=== PATIENT | male | born 1960 | race Caucasian/White ===

== ENCOUNTER 2017-08-16 19:56 | Emergency (ER) | payer MEDICARE ==
[2017-08-16] MEDS: Aspirin 81 MG Tab.Chew PO ONE (20:19)
[2017-08-16] MEDS: Morphine 2 MG/ML Syringe IVPUSH ONE ×2 (20:29→20:38)
[2017-08-16] MEDS: GI Cocktail Oral Solution 30 ML PO ONE (20:31)
[2017-08-16] MEDS: Sodium Chloride 0.9% 1,000 ML IV ONE (21:08)
[2017-08-16] MEDS: Insulin Regular, Human 100 Units/ML 3 ML Vial IV ONE (21:17)
[2017-08-16 21:36] VITALS: BP 125/79
[2017-08-16] MEDS: Sodium Chloride 0.9% 500 ML IV ONE (22:15)
[2017-08-16] MEDS: Ketorolac 30 MG/ML SDV IVPUSH ONE (22:22)
[2017-08-17] MEDS: Ketorolac 30 MG/ML SDV ONE (00:38)
[2017-08-17] MEDS: Morphine 10 MG/ML Syringe ONE (00:38)
--- NOTE | 2017-08-17 01:24 | ER ---
DATE OF SERVICE: 08/16/2017 HISTORY OF PRESENT ILLNESS: A 57-year-old male who drives himself into the emergency room with complaints of chest pain that started about an hour ago. He states it feels like a pressure on his chest like someone is sitting on his chest. He rates his pain at 8/10. He also has abdominal discomfort in the epigastric area and some low back pain. The patient denies any recent falls or injuries. He tells me he was watching television when he noticed the chest pain. The patient has not been running a fever. He states he has had some congestion symptoms over the last few days. No problems with nausea or vomiting. PAST MEDICAL HISTORY: [place] in 2005 with 1 stent placed at that time. Diabetes and is insulin dependent. The patient also is currently disabled because of an injury to the patient's shoulder. Again, the patient is rating his chest pain at 8/10. INITIAL TREATMENT: 4 baby aspirin were given to the patient. An EKG was obtained showing a normal sinus rhythm. An IV was started and the patient was given morphine 2 mg. This brought his pain down to a 5. After about 15 minutes, he was given another 2 mg and that brought his pain down to 3/10. GI cocktail was also given, which did not change his abdominal discomfort. FURTHER LAB AND X-RAY: CBC is unremarkable. Comprehensive metabolic panel shows a blood glucose nonfasting of 486, BUN is 21, creatinine 0.79. BUN to creatinine ratio was 26.6. Troponin is normal. Urine is negative. Urine tox screen is positive for opiates, which we have given the patient tonight. Chest x-ray is unremarkable. DIAGNOSES: 1. Chest pain with negative cardiac workup. 2. Diabetes with poor control/hyperglycemia. TREATMENT PLAN: The patient was given 1500 mL of normal saline in a bolus form. He was also given 10 units of regular insulin. We monitored the patient here for 4 hours in the ER after which the troponin was repeated, which was again negative, and his blood sugar now has dropped down to 239. The patient was also given Toradol about an hour ago, 30 mg IV, and he states he feels pretty good now. His pain is much better. Still having some mild low back pain, but he feels much better than when he came in. He states his chest pain is minimal, more of a pressure at this time. At this point, the patient was given the option of staying overnight and following up with another troponin level in the morning versus going home and coming back in for a followup troponin level at 7 a.m. The patient would very much like to go home and I feel this is reasonable. He will be discharged home with a followup plan of repeating a troponin as an outpatient in the morning at 7 a.m. The patient has no further questions. NARDA/RAQUEL /[id number] SKY
--- NOTE | 2017-08-17 10:18 | CR ---
AP PORTABLE CHEST, 08/16/17 Comparison made to prior exam dated 03/19/15. The heart size is normal. The lungs are clear. No significant changes from the prior exam. No evidence of acute intrathoracic disease. [id number] [facility]
== END 2017-08-16 23:20 | disposition home or self-care (01) ==
LOC: LB.ED 19:56
DX: R07.9 Chest pain, unspecified (principal); E11.65 Type 2 diabetes mellitus with hyperglycemia; I25.2 Old myocardial infarction
CPT/HCPCS: 36415; 71045; 80053; 80307; 81001; 82947; 84484; 85025; 93005; 96361; 96374; 96375; 99285-25; A9270-GY; J1885; J2270; J7040

== ENCOUNTER 2017-11-08 22:10 | Emergency (ER) | payer MEDICARE ==
[2017-11-08] MEDS: Morphine 2 MG/ML Syringe IVPUSH ONE (22:45)
[2017-11-08] MEDS: Morphine 10 MG/ML SDV ONE (22:51)
[2017-11-08] MEDS: Morphine 2 MG/ML Syringe IM ONE (23:28)
[2017-11-08] MEDS ORDERED: Acetaminophen/HYDROcodone 325-5 MG Tab ONE (23:50)
[2017-11-08] MEDS: methylPREDNISolone Sodium Succinate 125 MG/2 ML SDV IM ONE (23:56)
[2017-11-08] MEDS: methylPREDNISolone Sodium Succinate 125 MG/2 ML SDV ONE (23:59)
[2017-11-09] MEDS ORDERED: Ondansetron 4 MG Tab.DIS ONE (00:08)
[2017-11-09 00:17] VITALS: BP 144/89
--- NOTE | 2017-11-09 01:55 | ER ---
HISTORY OF PRESENT ILLNESS: A 57-year-old male who comes in with complaints of abdominal pain that started about 3 weeks ago after he was cutting some trees down and lifting some heavy stumps. The patient is pointing to the middle area of the abdomen as well as the upper area of the abdomen when describing the area of pain. He states that it has been painful since then. He has been taking ibuprofen 800 mg 3 times a day alternating with Tylenol, and he noticed the last couple of days his symptoms have become worse. He rates his pain at 10/10 tonight. He has been nauseated, but has not vomited. The patient tells me that he does not have much of an appetite and has not eaten much. He has been trying to drink fluids. The patient does not feel like he has been running a fever. He denies any problems with diarrhea, blood in the stool or black tarry stools and denies any problems with urinary frequency or hematuria. OBJECTIVE: GENERAL APPEARANCE: The patient is awake and alert. No obvious respiratory distress. VITAL SIGNS: Reviewed. Blood pressure initially is 152/98, heart rate is 95, respirations 18, O2 sats are 100%. He is afebrile. Physical exam, examining the patient's abdomen reveals fairly diffuse tenderness. It is most prominent in the periumbilical area and it seems to be radiating up both sides to the epigastric area. Bowel sounds are present. SKIN: Warm and dry. LUNGS: Clear. CARDIAC: Heart sounds distinct without murmurs. LABS: Include a CBC which is normal. CMP shows a potassium level of 3.0, otherwise unremarkable. Kidney function is maintained and the UA shows a small amount of proteinuria and glucosuria. INITIAL TREATMENT PLAN: The patient was given 4 mg of morphine which brought his pain down to a 6 or 7. He was given 2 more mg of morphine that brought his pain down to a 5, and he states he is comfortable at this level. At this point, a CT of the abdomen was obtained revealing the wall of the colon appears thickened, particularly the transverse colon with fluid-filled nondistended loops of small bowel noted in the left mid abdomen. There is also diffuse diverticular disease. No other abnormal findings really were noted. I re-evaluated the patient's abdomen and the upper abdomen and the periumbilical area. It is definitely where he is having most of this pain, which does correlate with the findings on the CT. There is some concern for possible colitis on the radiologist report. DIAGNOSES: 1. Abdominal pain, possibly involving colitis with definite bowel inflammation. 2. Hypokalemia. TREATMENT PLAN: The patient was given Solu-Medrol 125 mg IV. He will be discharged home with [place] tablets. He is to take one tablet every 6 hours as needed for pain. We will give him 3 Zofran tablets to use as needed for nausea, and I will write the patient a script for some prednisone orally 40 mg daily starting tomorrow. I will give him a 4- day supply. I will start him on K-dur 20 meq daily for 7 days. A script was written. The patient is to push fluids and utilize a soft-bland diet. I do want him to follow up in the clinic for a recheck and soon. He tells me he does have an appointment already scheduled for tomorrow afternoon. If his symptoms are significantly improving, he could wait another day or two, but if anything less than significant improvement, the patient is instructed to keep his appointment in the clinic tomorrow. He agrees with the treatment plan and has no further questions. NARDA/RAQUEL /[id number] SKY
--- NOTE | 2017-11-09 09:25 | CT ---
DATE OF SERVICE: 11/08/17 CLINICAL DATA: Abd pain x 3 weeks. After lifting heavy objects. UNENHANCED ABDOMEN AND PELVIC CT: Multislice acquisition through the abdomen and pelvis without IV or oral contrast was performed. Comparison is made to a prior exam dated 09/07/17. Motion artifact does degrade image quality. There are minimal atelectatic changes in the dependent portion of the left lower lung. The lung bases are otherwise clear. The heart size is normal. There is a small pericardial effusion. There are coronary artery calcifications. The unenhanced liver appears normal. The gallbladder appears normal. The spleen appears normal. The pancreas appears normal. The right and left adrenals appear normal. The right and left kidneys appear normal. No nephrocalcinosis or nephrolithiasis. No hydronephrosis or hydroureter. The bladder is fluid filled and appears normal. The prostate is mildly enlarged. No evidence of appendicitis. There are multiple fluid filled nondistended loops of small bowel within the mid and lower abdomen. There is also fluid within the ascending colon. There are few scattered air fluid levels. Enterocolitis should be considered. Followup imaging is recommended if clinically indicated. There is diverticulosis of the descending and sigmoid colon. No definite evidence for diverticulitis. No free air. There are surgical changes within the anterior abdominal wall, consistent with the patient's surgical history. No free fluid. No adenopathy. No aortic aneurysm. [id number] [facility]
== END 2017-11-09 00:06 | disposition home or self-care (01) ==
LOC: LB.ED 22:10
DX: R10.33 Periumbilical pain (principal); R10.10 Upper abdominal pain, unspecified; E87.6 Hypokalemia
CPT/HCPCS: 36415; 74176; 80053; 81001; 85025; 96372; 96374; 99284-25; A9270-GY; J2270; J2930

== ENCOUNTER 2017-11-20 12:49 | Emergency (ER) | payer MEDICARE ==
[2017-11-20] MEDS ORDERED: Ketorolac 30 MG/ML SDV IVPUSH ONE (13:34)
[2017-11-20] MEDS ORDERED: Metoclopramide 10 MG/2 ML SDV IV STA (13:34)
[2017-11-20] MEDS ORDERED: Metoclopramide 10 MG/2 ML SDV ONE (13:54)
[2017-11-20] MEDS ORDERED: Ketorolac 30 MG/ML SDV ONE (13:54)
[2017-11-20] MEDS: Sodium Chloride 0.9% 1,000 ML IV SCH ×2 (14:00→16:59)
[2017-11-20] MEDS ORDERED: Morphine 10 MG/ML SDV IV ONE ×2 (14:20→15:50)
[2017-11-20 14:58] VITALS: BP 149/103
[2017-11-20] MEDS ORDERED: Magnesium Citrate Solution 296 ML Bottle ONE ×2 (15:57→16:10)
[2017-11-20] MEDS ORDERED: Metoclopramide 10 MG Tab ONE ×3 (15:57→16:10)
--- NOTE | 2017-11-21 08:17 | CR ---
DATE OF SERVICE: 11/20/17 CLINICAL DATA: abdominal pain SUPINE AND UPRIGHT ABDOMEN: No evidence of obstruction or ileus. No free air. There is a moderate amount of stool present throughout the colon. No other significant findings. [id number] [facility]
--- NOTE | 2017-11-21 08:30 | CR ---
PA AND LATERAL CHEST, 11/20/17 No priors. The heart size is normal. The lungs are clear. No pneumothorax. No pleural effusions. No evidence of acute intrathoracic disease. [id number] [facility]
--- NOTE | 2017-11-21 08:41 | ER ---
DATE OF SERVICE: 11/20/2017 HISTORY OF PRESENT ILLNESS: Miguel presents complaining of abdominal pain. He describes this as in his right upper to mid quadrant. He also reports that he is constipated. He has only had 1 bowel movement in the last 10 days. He denies any fever, chills, nausea, or vomiting. He is a diabetic. He also reports 100-pound weight loss in the past 14 months or so. He states that he had similar symptoms of this abdominal pain in the past and that he is waiting for a followup appointment with specialist to be confirmed for EGD and colonoscopy and consultation. PHYSICAL EXAMINATION: LUNGS: Good air movement. No wheezes. ABDOMEN: Soft, flat. Right middle quadrant tenderness. No rebound. BACK: No CVA tenderness. Bowel sounds are present in all 4 quadrants. LABS/DIAGNOSTIC STUDIES: X-ray shows lots of stool as well as air in the colon. CBC with diff was unremarkable. Amylase and lipase were negative. BMP was within normal limits. Urinalysis showed glucose. ASSESSMENT: 1. Abdominal pain. I suspect diabetic gastroparesis. 2. Dehydration. PLAN: He received 2 L of IV normal saline here in the emergency room. I initiated him on Reglan and I gave him Reglan IV and sent him home on Reglan 10 mg p.o. q.a.c. and h.s. and gave him a bottle of magnesium citrate to take tonight and messages will be sent to the nurse of his primary doctor to remind them to follow through on his referral to see the specialist. He was discharged in improved condition. GIOVANNA/RAQUEL /[id number] SKY
== END 2017-11-20 16:20 | disposition home or self-care (01) ==
LOC: LB.ED 12:49
DX: R10.9 Unspecified abdominal pain (principal); E86.0 Dehydration
CPT/HCPCS: 36415; 71046; 74019; 80053; 81001; 82150; 83690; 85025; 85651; 96374; 96375; 96376; 99284-25; A9270-GY; J1885; J2270; J2765; J7030

== ENCOUNTER 2017-12-12 00:24 | Emergency (ER) | payer MEDICARE ==
[~2017-12-12 00:24] MED LIST: Acetaminophen/HYDROcodone 325-10 MG Tab ONE
[2017-12-12] MEDS ORDERED: Ketorolac 60 MG/2 ML SDV IM ONE (00:50)
[2017-12-12] MEDS ORDERED: traMADol 50 MG Tab ONE (01:25)
[2017-12-12] MEDS ORDERED: Acetaminophen/HYDROcodone 325-10 MG Tab PO ONE (01:29)
[2017-12-12] MEDS ORDERED: Acetaminophen/HYDROcodone 325-10 MG Tab ONE (01:33)
--- NOTE | 2017-12-12 01:35 | EDM.PDOC ---
ED HPI GENERAL MEDICAL PROBLEM - General Chief Complaint: General Stated Complaint: HURT ALL OVER Time Seen by Provider: 12/12/17 00:30 Source of Information: Reports: Patient History Limitations: Reports: No Limitations - History of Present Illness INITIAL COMMENTS - FREE TEXT/NARRATIVE: Patient is a 57 year old man who likely has ALS which is making him very weak and which is causing him to hurt all over. He would like something for pain. He has had extensive recent workups and would like something for the pain. Onset: Gradual Onset Date: 09/11/17 Onset Time: 07:00 Duration: Chronic, Constant Location: Reports: Generalized (Chronic pain all the time all over the body.) Quality: Reports: Dull Severity: Moderate Improves with: Reports: None Worsens with: Reports: None Context: Reports: Other (Probable ALS) Associated Symptoms: Reports: No Other Symptoms Treatments [employer]: Reports: Acetaminophen Other Treatments [employer]: Tylenol - Related Data Allergies Allergy/AdvReac Type Severity Reaction Status Date / Time No Known Allergies Allergy Verified 12/01/17 20:17 Home Meds: Home Meds Insulin Glarg,Human.Rec.Analog [Lantus Solostar] 10 unit SUBCUT DAILY PRN [History] Insulin Aspart [NovoLOG] See Protocol SUBCUT BIDMEALS 11/20/17 [History] Past Medical History HEENT History: Reports: Impaired Vision Cardiovascular History: Reports: CAD, High Cholesterol, [place], Stents Gastrointestinal History: Reports: GERD Neurological History: Reports: Concussion, Migraines Endocrine/Metabolic History: Reports: Diabetes, Type II Dermatologic History: Reports: Other (See Below) Other Dermatologic History: scars to LFA, reports "Its from my diabetes but I dont remember what its called.". Denies Eczema and Psoriasis - Infectious Disease History Infectious Disease History: Reports: Chicken Pox, Mumps - Past Surgical History HEENT Surgical History: Reports: Tonsillectomy Cardiovascular Surgical History: Reports: Coronary Artery Stent GI Surgical History: Reports: Appendectomy, Hernia Repair/Other, Other (See Below) Other GI Surgeries/Procedures: umbilical hernia repair Endocrine Surgical History: Reports: None Neurological Surgical History: Reports: None Musculoskeletal Surgical History: Reports: Arthroscopic Knee, Other (See Below) Other Musculoskeletal Surgeries/Procedures:: bilat meniscus repair Social & Family History - Family History Family Medical History: Noncontributory - Caffeine Use Caffeine Use: Reports: Coffee ED ROS GENERAL - Review of Systems Review Of Systems: See Below Constitutional: Reports: No Symptoms HEENT: Reports: No Symptoms Respiratory: Reports: No Symptoms Cardiovascular: Reports: No Symptoms Endocrine: Reports: No Symptoms GI/Abdominal: Reports: Abdominal Pain : Reports: No Symptoms Musculoskeletal: Reports: Neck Pain, Shoulder Pain, Arm Pain, Back Pain, Hand Pain, Leg Pain, Foot Pain, Joint Pain, Muscle Pain Skin: Reports: No Symptoms Neurological: Reports: Numbness (All over body.), Tingling Psychiatric: Reports: Depression Hematologic/Lymphatic: Reports: No Symptoms ED EXAM, GENERAL - Physical Exam Exam: See Below Exam Limited By: No Limitations General Appearance: Alert, WD/WN, No Apparent Distress Eye Exam: Bilateral Eye: EOMI, Normal Fundi, Normal Inspection, PERRL Ears: Normal External Exam, Normal Canal, Hearing Grossly Normal, Normal TMs Ear Exam: Bilateral Ear: Auricle Normal, Canal Normal, TM normal Nose: Normal Inspection, Normal Mucosa, No Blood Throat/Mouth: Normal Inspection, Normal Lips, Normal Teeth, Normal Gums, Normal Oropharynx, Normal Voice, No Airway Compromise Head: Atraumatic, Normocephalic Neck: Normal Inspection, Supple, Non-Tender, Full Range of Motion Respiratory/Chest: No Respiratory Distress, Lungs Clear, Normal Breath Sounds, No Accessory Muscle Use, Chest Non-Tender Cardiovascular: Normal Peripheral Pulses, Regular Rate, Rhythm, No Edema, No Gallop, No JVD, No Murmur, No Rub GI/Abdominal: Normal Bowel Sounds, Soft, Non-Tender, No Organomegaly, No Distention, No Abnormal Bruit, No Mass Back Exam: Muscle Spasm, Paraspinal Tenderness Extremities: Normal Inspection, Normal Range of Motion, Non-Tender, Normal Capillary Refill, No Pedal Edema Neurological: Sensory/Motor Deficit (All over body.) Psychiatric: Depressed Mood, Flat Affect Skin Exam: Warm, Dry, Intact, Normal Color, No Rash Course - Vital Signs Last Recorded V/S: Patient had low potassium and otherwise normal labs. No relief with Toradol, so was given 2, 10-325 mg [place] with mild relief. Sent home with 10 Tramadol to take 2 po q 4 hours and see PCP for further evaluation and treatment. - Orders/Labs/Meds Orders: Active Orders 24 hr Category Date Time Status Acetaminophen/HYDROcodone [[place]ia 325-10 MG] Med 12/12/17 01:29 Once 2 tab PO ONETIME ONE Labs: Laboratory Tests 12/12/17 12/12/17 Range/Units 01:00 01:00 WBC 7.0 (4.0-11.0) K/uL RBC 4.02 L (4.50-6.50) M/uL Hgb 13.2 (13.0-18.0) g/dL Hct 34.9 L (40.0-54.0) % MCV 87 (76-96) fL MCH 32.8 H (27.0-32.0) pg MCHC 37.8 H (31.0-35.0) g/dL RDW 12.6 (11.0-16.0) % Plt Count 217 (150-400) K/uL MPV 9.2 (6.0-10.0) fL Neut % (Auto) 40.5 L (45.0-70.0) % Lymph % (Auto) 48.3 H (20.0-40.0) % Holmes % (Auto) 9.3 (3.0-10.0) % Eos % (Auto) 1.3 (1.0-5.0) % Baso % (Auto) 0.6 H (0.0-0.5) % Neut # (Auto) 2.82 (2.00-7.50) K/uL Lymph # (Auto) 3.36 (1.50-4.00) K/uL Holmes # (Auto) 0.65 (0.20-0.80) K/uL Eos # (Auto) 0.09 (0.04-0.40) K/uL Baso # (Auto) 0.04 (0.02-0.10) K/uL Sodium 139 (136-145) mmol/L Potassium 2.7 L* (3.5-5.1) mmol/L Chloride 104 (98-107) mmol/L Carbon Dioxide 28.5 (21.0-32.0) mmol/L Anion Gap 9.2 (5.0-15.0) mmol/L BUN 12 (8-26) mg/dL Creatinine 0.81 (0.70-1.30) mg/dL Est Cr Clr Drug Dosing TNP Estimated GFR (MDRD) > 60 (>60) MLS/MIN BUN/Creatinine Ratio 14.8 (6-25) Glucose 123 H (74-100) mg/dL Calcium 9.0 (8.5-10.1) mg/dL Total Bilirubin 0.5 (0.0-1.0) mg/dL AST 7 L (15-37) U/L ALT 12 (12-78) U/L Alkaline Phosphatase 48 (46-116) U/L Total Protein 6.2 L (6.4-8.2) g/dL Albumin 3.3 L (3.4-5.0) g/dL Globulin 2.9 (2.2-4.2) g/dL Albumin/Globulin Ratio 1.1 (0.8-2.0) Meds: Medications Discontinued Medications Generic Name Dose Route Start Last Admin Trade Name Freq PRN Reason Stop Dose Admin Ketorolac Tromethamine 60 mg 12/12/17 00:50 12/12/17 00:50 Toradol IM 12/12/17 00:51 60 mg ONETIME ONE Administration Departure - Departure Time of Disposition: 01:40 Disposition: Home, Self-Care 01 Condition: Good Clinical Impression: Neuropathic arthritis - Discharge Information Referrals: PCP,None [Primary Care Provider] - - My Orders Last 24 Hours: My Active Orders 12/12/17 01:29 Acetaminophen/HYDROcodone [[place]cad[place] 325-10 MG] 2 tab PO ONETIME ONE - Assessment/Plan Last 24 Hours: My Active Orders 12/12/17 01:29 Acetaminophen/HYDROcodone [[place] 325-10 MG] 2 tab PO ONETIME ONE
== END 2017-12-12 01:36 | disposition home or self-care (01) ==
LOC: LB.ED 00:24
DX: M14.60 Charcot's joint, unspecified site (principal); I25.2 Old myocardial infarction; E11.9 Type 2 diabetes mellitus without complications
CPT/HCPCS: 36415; 80053; 85025; 96372; 99283; A9270; J1885

== ENCOUNTER 2017-12-27 21:59 | Emergency (ER) | payer MEDICARE ==
[2017-12-27 22:45] VITALS: BP 122/83
--- NOTE | 2017-12-27 22:46 | EDM.PDOC ---
ED HPI GENERAL MEDICAL PROBLEM - General Chief Complaint: Neuro Symptoms/Deficits Stated Complaint: Stroke Like Symptoms Time Seen by Provider: 12/27/17 22:20 Source of Information: Reports: Patient History Limitations: Reports: No Limitations - History of Present Illness INITIAL COMMENTS - FREE TEXT/NARRATIVE: Pt was brought into emergency by ambulance. Pt is alert and oriented. he claims that he was at home and he has balance problem since he has diagnosis of ALS. Pt was getting ready to go to bed, he got off his lazyboy and felt dizzy and fell backward and landed on the floor and hit his head on the carpeted floor. Pt did not loose consciousness, he called ambulance. He c/o pain over the occipital region of the head and right ear. No blurry vision, no vertigo. felt some nausea, but has not vomited. He claims he landed on his right shoulder , has some pain . He rates his pain at 8/10 and says it is nerve pain. Pt does take gabapentin 300mg 3 times daily.Pt is not in any discomfort or distress in the emergency room. Pt claims he has been diagnosed with ALS and has appointment with his neurologist 01/09/18. Onset: Today Onset Date: 12/27/17 Onset Time: 21:30 Duration: Improving Location: Reports: Head Quality: Reports: Ache Severity: Moderate Improves with: Reports: None Worsens with: Reports: None Associated Symptoms: Denies: Confusion, Chest Pain, Cough, Diaphoresis, Fever/ Chills, Headaches, Malaise, Nausea/Vomiting, Rash, Seizure, Shortness of Breath , Syncope, Weakness - Related Data Allergies Allergy/AdvReac Type Severity Reaction Status Date / Time No Known Allergies Allergy Verified 12/01/17 20:17 Home Meds: Home Meds Insulin Glarg,Human.Rec.Analog [Lantus Solostar] 10 unit SUBCUT DAILY PRN [History] Insulin Aspart [NovoLOG] See Protocol SUBCUT BIDMEALS 11/20/17 [History] Past Medical History HEENT History: Reports: Impaired Vision Cardiovascular History: Reports: CAD, High Cholesterol, [place], Stents Gastrointestinal History: Reports: GERD Neurological History: Reports: Concussion, Migraines Endocrine/Metabolic History: Reports: Diabetes, Type II Dermatologic History: Reports: Other (See Below) Other Dermatologic History: scars to LFA, reports "Its from my diabetes but I dont remember what its called.". Denies Eczema and Psoriasis - Infectious Disease History Infectious Disease History: Reports: Chicken Pox, Mumps - Past Surgical History HEENT Surgical History: Reports: Tonsillectomy Cardiovascular Surgical History: Reports: Coronary Artery Stent GI Surgical History: Reports: Appendectomy, Hernia Repair/Other, Other (See Below) Other GI Surgeries/Procedures: umbilical hernia repair Endocrine Surgical History: Reports: None Neurological Surgical History: Reports: None Musculoskeletal Surgical History: Reports: Arthroscopic Knee, Other (See Below) Other Musculoskeletal Surgeries/Procedures:: bilat meniscus repair Social & Family History - Family History Family Medical History: Noncontributory - Caffeine Use Caffeine Use: Reports: Coffee ED ROS GENERAL - Review of Systems Review Of Systems: See Below Constitutional: Reports: Weakness. Denies: Fever, Chills, Malaise HEENT: Denies: Rhinitis, Throat Pain, Throat Swelling, Vision Change Respiratory: Denies: Shortness of Breath, Cough, Sputum Cardiovascular: Reports: Lightheadedness (from his ALS). Denies: Chest Pain GI/Abdominal: Reports: Nausea. Denies: Abdominal Pain, Constipation, Diarrhea, Vomiting : Denies: Dysuria, Flank Pain, Frequency, Incontinence Musculoskeletal: Denies: Joint Pain, Joint Swelling Skin: Denies: Bruising, Pruritis, Rash, Erythema Neurological: Reports: Headache. Denies: Confusion, Dizziness, Numbness, Tingling, Tremors, Weakness Psychiatric: Denies: Agitation, Anxiety, Confusion ED EXAM, GENERAL - Physical Exam Exam: See Below Exam Limited By: No Limitations General Appearance: Alert, WD/WN, No Apparent Distress Eye Exam: Bilateral Eye: EOMI, PERRL Ears: Normal External Exam, Normal Canal, Hearing Grossly Normal, Normal TMs Ear Exam: Bilateral Ear: Canal Normal, TM normal Nose: Normal Inspection, Normal Mucosa, No Blood Throat/Mouth: Normal Inspection, Normal Lips, Normal Teeth, Normal Gums, Normal Oropharynx, Normal Voice, No Airway Compromise Head: Atraumatic, Normocephalic Neck: Normal Inspection, Supple, Non-Tender, Full Range of Motion Respiratory/Chest: No Respiratory Distress, Lungs Clear, Normal Breath Sounds, No Accessory Muscle Use, Chest Non-Tender Cardiovascular: Normal Peripheral Pulses, Regular Rate, Rhythm, No Edema, No Gallop, No JVD, No Murmur, No Rub Peripheral Pulses: 2+: Carotid (L), Carotid (R), Radial (L), Radial (R), Dorsalis Pedis (L), Dorsalis Pedis (R) GI/Abdominal: Normal Bowel Sounds, Soft, Non-Tender, No Organomegaly, No Distention, No Abnormal Bruit, No Mass Extremities: Normal Inspection, Normal Range of Motion, Non-Tender, Normal Capillary Refill, No Pedal Edema Neurological: Alert, Oriented, CN II-XII Intact, Normal Cognition, Normal Gait, Normal Reflexes, No Motor/Sensory Deficits Skin Exam: Warm, Intact Course - Vital Signs Text/Narrative:: Pt's clinical exam appears normal. Vitals normal. His neuro exam is normal. His pupils are equal and reactive. Not in any distress. Ct head was done as he c/o nausea with headache. CT head is negative for bleed. Also does not have any external scalp hematoma or bruising of the scalp. Pt reassured that he does not have acute head injury. Advised to monitor for worsening headache, blurry vision, vomiting, weakness in the extremities, Sudden onset of shortness of breath, vertigo.If these symptoms occur in the next 24 hrs neeed to be seen in the emergency room, other trotter followup with his primary care provider next week. - Orders/Labs/Meds Orders: Active Orders 24 hr Category Date Time Status Head wo Cont [CT] Stat Exams 12/27/17 22:26 Ordered Departure - Departure Time of Disposition: 22:50 Disposition: Home, Self-Care 01 Condition: Fair Clinical Impression: Headache - Discharge Information Additional Instructions: CT head is negative for bleed. Also does not have any external scalp hematoma or bruising of the scalp. Pt reassured that he does not have acute head injury. Advised to monitor for worsening headache, blurry vision, vomiting, weakness in the extremities, Sudden onset of shortness of breath, vertigo.If these symptoms occur in the next 24 hrs neeed to be seen in the emergency room, other trotter followup with his primary care provider next week. - Problem List & Annotations (1) Headache SNOMED Code(s): 31791557 Code(s): R51 - HEADACHE Status: Acute - Problem List Review Problem List Initiated/Reviewed/Updated: Yes - My Orders Last 24 Hours: My Active Orders 12/27/17 22:26 Head wo Cont [CT] Stat - Assessment/Plan Last 24 Hours: My Active Orders 12/27/17 22:26 Head wo Cont [CT] Stat Assessment:: Headache s/p fall Plan: CT head is negative for bleed. Also does not have any external scalp hematoma or bruising of the scalp. Pt reassured that he does not have acute head injury. Continue home meds.Also advised to keep his appointment with his neurologist. Advised to monitor for worsening headache, blurry vision, vomiting, weakness in the extremities, Sudden onset of shortness of breath, vertigo.If these symptoms occur in the next 24 hrs need to be seen in the emergency room, other trotter followup with his primary care provider next week.
--- NOTE | 2017-12-28 08:48 | CT ---
DATE OF SERVICE: 12/28/17 CLINICAL DATA: headache UNENHANCED BRAIN CT: Routine protocol. No priors. No masses or mass effect. No intracranial hemorrhage. No evidence of acute or subacute infarct. No osseous abnormalities. IMPRESSION: No acute intracranial abnormalities. [id number] [facility]
== END 2017-12-27 22:54 | disposition home or self-care (01) ==
LOC: LB.ED 21:59
DX: R51 Headache (principal); I25.2 Old myocardial infarction; E11.9 Type 2 diabetes mellitus without complications; W19.XXXA Unspecified fall, initial encounter
CPT/HCPCS: 70450; 99284-25; A0425; A0429

== ENCOUNTER 2018-08-11 10:00 | Emergency (ER) | payer MEDICARE ==
[2018-08-11] MEDS ORDERED: Sodium Chloride 0.9% 10 ML Syringe FLUSH PRN (10:31)
[2018-08-11] MEDS ORDERED: Ketorolac 30 MG/ML SDV IVPUSH ONE (10:32)
--- NOTE | 2018-08-11 10:43 | EDM.PDOC ---
ED HPI GENERAL MEDICAL PROBLEM - General Chief Complaint: Abdominal Pain Stated Complaint: pain Time Seen by Provider: 08/11/18 10:20 Source of Information: Reports: Patient History Limitations: Reports: No Limitations - History of Present Illness INITIAL COMMENTS - FREE TEXT/NARRATIVE: This patient presents to the ED for evaluation of abdominal pain. He states he has had abdominal pain since September, after lifting some rocks. He has had an extensive GI workup and then a neuro-GI workup without a definitive diagnosis. He has been on pain meds intermittently which did treat the pain but it persists when he is off the medication. He comes in today because the pain has been worse the past couple of days. He states is is a dull, aching pain in both lower abdominal quadrants. He has had a decrease in his appetite with some intermittent nausea but no vomiting. He has had some occasional diarrhea as well as some intermittent constipation. He denies chest pain, difficulty breathing, headache, pain with urination. Onset: Other (Patient has had abdominal pain since 10/17) Duration: Getting Worse Location: Reports: Abdomen Quality: Reports: Burning, Dull Abdominal Pain Score (Numeric/FACES): 6 - Related Data Allergies Allergy/AdvReac Type Severity Reaction Status Date / Time No Known Allergies Allergy Verified 08/11/18 11:19 Past Medical History HEENT History: Reports: Impaired Vision Cardiovascular History: Reports: CAD, High Cholesterol, [place], Stents Gastrointestinal History: Reports: GERD Neurological History: Reports: Concussion, Migraines Endocrine/Metabolic History: Reports: Diabetes, Type II Dermatologic History: Reports: Other (See Below) Other Dermatologic History: scars to LFA, reports "Its from my diabetes but I dont remember what its called.". Denies Eczema and Psoriasis - Infectious Disease History Infectious Disease History: Reports: Chicken Pox, Mumps - Past Surgical History HEENT Surgical History: Reports: Tonsillectomy Cardiovascular Surgical History: Reports: Coronary Artery Stent GI Surgical History: Reports: Appendectomy, Hernia Repair/Other, Other (See Below) Other GI Surgeries/Procedures: umbilical hernia repair Endocrine Surgical History: Reports: None Neurological Surgical History: Reports: None Musculoskeletal Surgical History: Reports: Arthroscopic Knee, Other (See Below) Other Musculoskeletal Surgeries/Procedures:: bilat meniscus repair Social & Family History - Family History Family Medical History: Noncontributory - Caffeine Use Caffeine Use: Reports: Coffee ED ROS GENERAL - Review of Systems Review Of Systems: See Below Constitutional: Reports: Decreased Appetite. Denies: Fever HEENT: Reports: No Symptoms Respiratory: Denies: Shortness of Breath, Cough Cardiovascular: Denies: Chest Pain, Lightheadedness Endocrine: Reports: No Symptoms GI/Abdominal: Reports: Abdominal Pain, Constipation, Diarrhea, Decreased Appetite, Nausea. Denies: Vomiting : Denies: Dysuria, Flank Pain Skin: Reports: No Symptoms Neurological: Denies: Headache, Tingling, Weakness Psychiatric: Reports: No Symptoms ED EXAM, GI/ABD - Physical Exam Exam: See Below Exam Limited By: No Limitations General Appearance: Alert, WD/WN, No Apparent Distress Eyes: Bilateral: Normal Appearance Ears: Normal External Exam Nose: Normal Inspection Throat/Mouth: Normal Inspection Head: Atraumatic, Normocephalic Neck: Normal Inspection, Supple, Non-Tender, Full Range of Motion Respiratory/Chest: No Respiratory Distress, Lungs Clear, Normal Breath Sounds, No Accessory Muscle Use, Chest Non-Tender Cardiovascular: Regular Rate, Rhythm, No JVD GI/Abdominal Exam: Normal Bowel Sounds, Soft, No Organomegaly, No Distention, Other (tenderness with palpation of bilateral lower quadrants) Back Exam: Normal Inspection Neurological: Alert, Oriented Psychiatric: Normal Affect, Normal Mood Skin Exam: Warm, Dry, Intact Course - Vital Signs Last Recorded V/S: Last Vital Signs Temp 36.3 C 08/11/18 10:05 Pulse 96 08/11/18 11:34 Resp 18 08/11/18 11:34 BP 137/83 08/11/18 11:34 Pulse Ox 100 08/11/18 11:34 - Orders/Labs/Meds Orders: Active Orders 24 hr Category Date Time Status Iopamidol [Isovue-300 (61%)] Med 08/11/18 10:44 Active 100 ml IV ASDIRECTED PRN Sodium Chloride 0.9% [Normal Saline] Med 08/11/18 10:45 Active 50 ml FLUSH ONETIME Sodium Chloride 0.9% [Normal Saline] 1,000 ml Med 08/11/18 10:45 Active IV ASDIRECTED Sodium Chloride 0.9% [Saline Flush] Med 08/11/18 10:31 Active 10 ml FLUSH ASDIRECTED PRN Saline Lock Insert [OM.PC] Stat Oth 08/11/18 10:31 Ordered Medication Orders Sodium Chloride (Normal Saline) 1,000 mls @ 1,000 mls/hr IV ASDIRECTED NANNETTE Last Admin: 08/11/18 10:45 Dose: 1,000 mls/hr Iopamidol (Isovue-300 (61%)) 100 ml IV ASDIRECTED PRN PRN Reason: RADIOLOGY EXAM Sodium Chloride (Saline Flush) 10 ml FLUSH ASDIRECTED PRN PRN Reason: Keep Vein Open Sodium Chloride (Normal Saline) 50 ml FLUSH ONETIME NANNETTE Last Admin: 08/11/18 11:09 Dose: 50 ml Labs: Laboratory Tests 08/11/18 08/11/18 08/11/18 Range/Units 10:40 10:40 11:02 WBC 9.6 D (4.0-11.0) K/uL RBC 4.58 (4.50-6.50) M/uL Hgb 15.2 (13.0-18.0) g/dL Hct 42.8 D (40.0-54.0) % MCV 93 (76-96) fL MCH 33.2 H (27.0-32.0) pg MCHC 35.5 H (31.0-35.0) g/dL RDW 12.9 (11.0-16.0) % Plt Count 246 (150-400) K/uL MPV 9.5 (6.0-10.0) fL Neut % (Auto) 63.5 (45.0-70.0) % Lymph % (Auto) 26.0 (20.0-40.0) % Starke % (Auto) 7.5 (3.0-10.0) % Eos % (Auto) 2.7 (1.0-5.0) % Baso % (Auto) 0.3 (0.0-0.5) % Neut # (Auto) 6.06 (2.00-7.50) K/uL Lymph # (Auto) 2.49 (1.50-4.00) K/uL Starke # (Auto) 0.72 (0.20-0.80) K/uL Eos # (Auto) 0.26 (0.04-0.40) K/uL Baso # (Auto) 0.03 (0.02-0.10) K/uL Sodium 140 (136-145) mmol/L Potassium 4.3 D (3.5-5.1) mmol/L Chloride 102 (98-107) mmol/L Carbon Dioxide 26.5 (21.0-32.0) mmol/L Anion Gap 15.8 H (5.0-15.0) mmol/L BUN 17 D (8-26) mg/dL Creatinine 0.84 (0.70-1.30) mg/dL Est Cr Clr Drug Dosing TNP Estimated GFR (MDRD) > 60 (>60) MLS/MIN BUN/Creatinine Ratio 20.2 (6-25) Glucose 172 H D (74-100) mg/dL Calcium 9.2 (8.5-10.1) mg/dL Total Bilirubin 0.3 D (0.0-1.0) mg/dL AST 12 L (15-37) U/L ALT 17 (12-78) U/L Alkaline Phosphatase 74 (46-116) U/L Total Protein 7.3 (6.4-8.2) g/dL Albumin 4.0 (3.4-5.0) g/dL Globulin 3.3 (2.2-4.2) g/dL Albumin/Globulin Ratio 1.2 (0.8-2.0) Urine Color Yellow Urine Appearance Clear (CLEAR) Urine pH 5.5 (5.0-8.0) Ur Specific [place] >= 1.030 (1.003-1.030) Urine Protein Negative (NEGATIVE) mg/dL Urine Glucose (UA) 100 H (NEGATIVE) mg/dL Urine Ketones 15 H (NEGATIVE) mg/dL Urine Occult Blood Negative (NEGATIVE) Urine Nitrite Negative (NEGATIVE) Urine Bilirubin Negative (NEGATIVE) Urine Urobilinogen 0.2 (0.2-1.0) E.U./dL Ur Leukocyte Esterase Negative (NEGATIVE) Meds: Medications Generic Name Dose Route Start Last Admin Trade Name Freq PRN Reason Stop Dose Admin Sodium Chloride 1,000 mls @ 1,000 mls/hr 08/11/18 10:45 08/11/18 10:45 Normal Saline IV 1,000 mls/hr ASDIRECTED NANNETTE Administration Iopamidol 100 ml 08/11/18 10:44 Isovue-300 (61%) IV ASDIRECTED PRN RADIOLOGY EXAM Sodium Chloride 10 ml 08/11/18 10:31 Saline Flush FLUSH ASDIRECTED PRN Keep Vein Open Sodium Chloride 50 ml 08/11/18 10:45 08/11/18 11:09 Normal Saline FLUSH 50 ml ONETIME NANNETTE Administration Discontinued Medications Generic Name Dose Route Start Last Admin Trade Name Valdez PRN Reason Stop Dose Admin Ketorolac Tromethamine 30 mg 08/11/18 10:32 08/11/18 10:50 Toradol IVPUSH 08/11/18 10:33 30 mg ONETIME ONE Administration Morphine Sulfate 4 mg 08/11/18 11:45 08/11/18 12:01 Morphine IV 08/11/18 11:46 4 mg ONETIME ONE Administration - Re-Assessments/Exams Free Text/Narrative Re-Assessment/Exam: 08/11/18 12:41 This patient presents with abdominal pain as detailed above. A broad differential diagnosis was considered including appendicitis, gall bladder disease, pancreatitis, diverticular disease, bowel obstruction, volvulus, intussusception, gastritis and peptic ulcer disease, gastro intestinal infection , inflammatory bowel disease, peritonitis, kidney stones, UTI, mesenteric lymphadenopathy, IBS, and hernia. The workup in the ED is at this point reassuring. He does have evidence of a right inguinal hernia and gastritis/enteritis that could be causing his pain.My suspicioin for an intraabdominal catastrophe or other worrisome etiology is low. Imaging studies show hernia with gastritis/enteritis and direct visualization is suggested. There is no indication for admission at this time for serial exams and further workup. Patient is hemodynamically stable in ED. Plan is home with 12 hour abdominal pain recheck by primary care physician or return to ED at that time. Return for fevers greater than 102, increasing pain, other new symptoms develop. Abdominal pain instructions given to patient. The patient stated he would just come back if his pain was not treated. He denied having used pain medications other than Tylenol or ibuprofen in the recent past ; however, information from the [place] Prescription Database suggests otherwise. When questioned about that he stated he did not understand what I was asking him. He was given a prescription for 15 Tramadol tablets. He was instructed to follow up with primary care this week; patient states he does not have established primary care. Review of medical records reveal he is established for primary care in our clinic. Questions were answered. Departure - Departure Time of Disposition: 12:30 Disposition: Home, Self-Care 01 Condition: Good Clinical Impression: Gastritis, Abdominal pain - Discharge Information *PRESCRIPTION DRUG MONITORING PROGRAM REVIEWED*: Yes *COPY OF PRESCRIPTION DRUG MONITORING REPORT IN PATIENT BESSIE: No Instructions: Gastritis, Adult, [id number] Referrals: PCP,None [Primary Care Provider] - Forms: ED Department Discharge, ED Return to Work/School Form - My Orders Last 24 Hours: My Active Orders 08/11/18 10:31 Sodium Chloride 0.9% [Saline Flush] 10 ml FLUSH ASDIRECTED PRN Saline Lock Insert [OM.PC] Stat 08/11/18 10:44 Iopamidol [Isovue-300 (61%)] 100 ml IV ASDIRECTED PRN 08/11/18 10:45 Sodium Chloride 0.9% [Normal Saline] 50 ml FLUSH ONETIME Sodium Chloride 0.9% [Normal Saline] 1,000 ml IV ASDIRECTED - Assessment/Plan Last 24 Hours: My Active Orders 08/11/18 10:31 Sodium Chloride 0.9% [Saline Flush] 10 ml FLUSH ASDIRECTED PRN Saline Lock Insert [OM.PC] Stat 08/11/18 10:44 Iopamidol [Isovue-300 (61%)] 100 ml IV ASDIRECTED PRN 08/11/18 10:45 Sodium Chloride 0.9% [Normal Saline] 50 ml FLUSH ONETIME Sodium Chloride 0.9% [Normal Saline] 1,000 ml IV ASDIRECTED
[2018-08-11] MEDS ORDERED: Iopamidol 612 MG/ML 100 ML Bottle IV PRN (10:44)
[2018-08-11] MEDS ORDERED: Sodium Chloride 0.9% 1,000 ML IV SCH (10:45)
[2018-08-11] MEDS ORDERED: Sodium Chloride 0.9% 50 ML SDV FLUSH SCH (10:45)
[2018-08-11 11:35] VITALS: BP 137/83
[2018-08-11] MEDS ORDERED: Morphine 10 MG/ML SDV IV ONE (11:45)
--- NOTE | 2018-08-11 12:34 | CT ---
DATE OF SERVICE: 08/11/2018 CLINICAL DATA: Abdominal Pain Enhanced Abdomen and Pelvic CT: Multislice acquisition through the abdomen and pelvis with IV, but without oral contrast was performed. Comparison is made to a prior exam dated 11/23/2017. There are minimal atelectatic changes in dependent portion of both lungs. The lung bases are otherwise clear. The heart size is normal. There are coronary artery calcifications. No significant pericardial effusion. There is a small hiatal hernia. There is mild diffuse gastric wall thickening. This is probably related to non distention. Gastritis should be considered. The liver is normal size with homogeneous attenuation. No focal hepatic lesions. The gallbladder appears normal. No biliary duct dilation. The spleen appears normal. The pancreas appears normal. No pancreatic duct dilation. The right and left adrenals appear normal. No adrenal mass. The right and left kidneys appear normal and enhance symmetrically. No hydronephrosis or hydroureter. The bladder is partially fluid-filled. There is mild diffuse bladder wall thickening. This is probably related to non distention. Cystitis should be considered. The prostate is mildly enlarged. There are calcifications within the prostate consistent with chronic prostatitis. No evidence of appendicitis. There is a moderate amount of stool present throughout the colon. There is minimal diverticulosis of the descending and sigmoid colon. No evidence of diverticulitis. There is mild mural thickening within the region of the rectum and anus. Direct visualization is recommended. There are multiple fluid-filled loops of small bowel within the left abdomen. One of these loops of small bowel is mildly distended. They do contain a few scattered air-fluid levels. There is also mild mural thickening within a couple of these loops of small bowel. Enteritis should be considered. Localized ileus or early or partial obstruction cannot be completely excluded. Follow up imaging is recommended if clinically indicated. No free air. No free fluid. No adenopathy. No aortic aneurysm or dissection. There is a right inguinal hernia containing fat. There is mild degenerative disc disease at multiple levels in the lower thoracic and lumbar spine. No other significant findings. MTDD
== END 2018-08-11 12:35 | disposition home or self-care (01) ==
LOC: LB.ED 10:00
DX: K29.70 Gastritis, unspecified, without bleeding (principal); E11.9 Type 2 diabetes mellitus without complications; I25.2 Old myocardial infarction
CPT/HCPCS: 36415; 74177; 80053; 81003; 85025; 96361; 96374; 96375; 99284; J1885; J2270; J7030

== ENCOUNTER 2018-09-24 04:11 | Emergency (ER) | payer MEDICARE ==
[2018-09-24] MEDS ORDERED: Ketorolac 60 MG/2 ML SDV IM ONE (05:12)
--- NOTE | 2018-09-24 05:17 | EDM.PDOC ---
ED HPI GENERAL MEDICAL PROBLEM - General Chief Complaint: General Stated Complaint: ABD PAIN Time Seen by Provider: 09/24/18 04:40 Source of Information: Reports: Patient History Limitations: Reports: No Limitations - History of Present Illness INITIAL COMMENTS - FREE TEXT/NARRATIVE: According to patient, he has been having pain in his abdomen for past 3 days pain is in the right lower quadrant. He has been having loose stools for past 3 days now. Stool are semiformed. no blood or mucus in the stool. No cramping with the bowel movements.NO nausea or vomiting. No fever , no chills. No abdominal bloating. Pt has had appendectomy in the past. Also he has had right inguinal hernia repair 1 month ago. Pt is concerned that this might be surgical pain from his inguinal surgery 1 month ago, but his pain only started 3 days ago with his diarrhea.. Onset: Gradual Onset Date: 09/21/18 Duration: Intermittent, Waxing/Waning Location: Reports: Abdomen Quality: Reports: Ache Severity: Moderate Improves with: Reports: None Worsens with: Reports: None Associated Symptoms: Denies: Confusion, Chest Pain, Cough, Diaphoresis, Fever/ Chills, Nausea/Vomiting, Rash, Seizure, Shortness of Breath, Syncope, Weakness Treatments WIRE WELDER: Reports: Acetaminophen - Related Data Allergies Allergy/AdvReac Type Severity Reaction Status Date / Time No Known Allergies Allergy Verified 09/24/18 05:00 Past Medical History HEENT History: Reports: Impaired Vision Cardiovascular History: Reports: CAD, High Cholesterol, [place], Stents Gastrointestinal History: Reports: GERD Other Gastrointestinal History: umbilical hernia repair with mesh Neurological History: Reports: Concussion, Migraines Endocrine/Metabolic History: Reports: Diabetes, Type II Dermatologic History: Reports: Other (See Below) Other Dermatologic History: scars to LFA, reports "Its from my diabetes but I dont remember what its called.". Denies Eczema and Psoriasis - Infectious Disease History Infectious Disease History: Reports: Chicken Pox, Mumps - Past Surgical History HEENT Surgical History: Reports: Tonsillectomy Cardiovascular Surgical History: Reports: Coronary Artery Stent GI Surgical History: Reports: Appendectomy, Hernia Repair/Other, Other (See Below) Other GI Surgeries/Procedures: umbilical hernia repair Endocrine Surgical History: Reports: None Neurological Surgical History: Reports: None Musculoskeletal Surgical History: Reports: Arthroscopic Knee, Other (See Below) Other Musculoskeletal Surgeries/Procedures:: bilat meniscus repair Social & Family History - Family History Family Medical History: Noncontributory - Caffeine Use Caffeine Use: Reports: Coffee ED ROS GENERAL - Review of Systems Review Of Systems: See Below Constitutional: Denies: Fever, Chills HEENT: Denies: Rhinitis, Throat Pain Respiratory: Denies: Shortness of Breath, Wheezing, Cough, Sputum Cardiovascular: Denies: Chest Pain, Lightheadedness GI/Abdominal: Denies: Abdominal Pain, Nausea, Vomiting Musculoskeletal: Denies: Joint Pain, Joint Swelling Skin: Denies: Bruising, Pruritis, Rash Neurological: Denies: Confusion, Dizziness, Headache ED EXAM, GENERAL - Physical Exam Exam: See Below Exam Limited By: No Limitations General Appearance: Alert, WD/WN, No Apparent Distress Eye Exam: Bilateral Eye: EOMI, PERRL Ear Exam: Bilateral Ear: Auricle Normal, Canal Normal, TM normal Nose: Normal Inspection, Normal Mucosa, No Blood Throat/Mouth: Normal Inspection, Normal Lips, Normal Teeth, Normal Gums, Normal Oropharynx, Normal Voice, No Airway Compromise Head: Atraumatic, Normocephalic Neck: Normal Inspection, Supple, Non-Tender, Full Range of Motion Respiratory/Chest: No Respiratory Distress, Lungs Clear, Normal Breath Sounds, No Accessory Muscle Use, Chest Non-Tender Cardiovascular: Normal Peripheral Pulses, Regular Rate, Rhythm, No Edema, No Gallop, No JVD, No Murmur, No Rub GI/Abdominal: Normal Bowel Sounds, Soft, Tender (pt has superficial tenderness all over the abdomen. no tenderness on deep palpation. There are haled scars from appendectomy and right inguinal hernia repair. There is no tenderness on either of the scar. No hernia note in the right inguinal region. ). No: Guarding, Rigid, Rebound Course - Vital Signs Text/Narrative:: Pt's vitals are stable .Afebrile. His abdominal exam is benign and normal bowel sounds.. It does appear like he has viral gastroenteritis, which is resolving. He did have a bowel movement in the emergency room. I have reassured that his pain does not appear to be related to the recent surgery. He did receive toradol 30mg IM. Advised oral hydration and rest. the gastroenteritis should resolve without any complications. Advised to return to emergency room, if he has severe abdominal pain, with abdominal bloating, not passing gas, severe vomiting. Otherwise advised to call his surgeon's office and followup . - Orders/Labs/Meds Meds: Medications Discontinued Medications Generic Name Dose Route Start Last Admin Trade Name Valdez PRN Reason Stop Dose Admin Ketorolac Tromethamine 30 mg 09/24/18 05:12 Toradol IM 09/24/18 05:13 ONETIME ONE Departure - Departure Time of Disposition: 17:00 Disposition: Home, Self-Care 01 Condition: Fair Clinical Impression: Viral gastroenteritis - Discharge Information *PRESCRIPTION DRUG MONITORING PROGRAM REVIEWED*: Not Applicable *COPY OF PRESCRIPTION DRUG MONITORING REPORT IN PATIENT BESSIE: Not Applicable Instructions: Gastritis, Adult, [id number], Viral Gastroenteritis, Adult, [id number] Forms: ED Department Discharge Additional Instructions: Apply warm pack to RLQ. Do not lift anything heavy, follow up with surgeon. - Problem List & Annotations (1) Viral gastroenteritis SNOMED Code(s): 254242287 Code(s): A08.4 - VIRAL INTESTINAL INFECTION, UNSPECIFIED Status: Acute - Problem List Review Problem List Initiated/Reviewed/Updated: Yes - Assessment/Plan Assessment:: Viral gastroenteritis Plan: Pt's vitals are stable .Afebrile. His abdominal exam is benign and normal bowel sounds.. It does appear like he has viral gastroenteritis, which is resolving. He did have a bowel movement in the emergency room. I have reassured that his pain does not appear to be related to the recent surgery. He did receive toradol 30mg IM. Advised oral hydration and rest. the gastroenteritis should resolve without any complications. Advised to return to emergency room, if he has severe abdominal pain, with abdominal bloating, not passing gas, severe vomiting. Otherwise advised to call his surgeon's office and followup .
== END 2018-09-24 05:15 | disposition home or self-care (01) ==
LOC: LB.ED 04:11
DX: A08.4 Viral intestinal infection, unspecified (principal); E11.9 Type 2 diabetes mellitus without complications; I25.2 Old myocardial infarction
CPT/HCPCS: 96372; 99283; J1885

== ENCOUNTER 2019-02-02 21:38 | Emergency (ER) | payer MEDICARE ==
[2019-02-02] MEDS ORDERED: traMADol 50 MG Tab ONE (21:56)
[2019-02-02 22:05] VITALS: BP 121/78; PULSE 110
--- NOTE | 2019-02-02 22:19 | EDM.PDOC ---
ED HPI GENERAL MEDICAL PROBLEM - General Chief Complaint: Abdominal Pain Stated Complaint: ABD PAIN Time Seen by Provider: 02/02/19 22:00 Source of Information: Reports: Patient History Limitations: Reports: No Limitations - History of Present Illness INITIAL COMMENTS - FREE TEXT/NARRATIVE: This is a 58yo M here for abdominal pain and discomfort. He was lifting his tool box and felt a pop and has localized pain since the episode tonight. He has had prior inguinal hernia surgery in the past. He denies any bulge or mass but has tenderness of the lower abdomen below the umbilicus midline on touch. Onset: Sudden Duration: Recurring Location: Reports: Abdomen Quality: Reports: Sharp Severity: Moderate Improves with: Reports: None Worsens with: Reports: Movement Context: Reports: Lifting Associated Symptoms: Reports: No Other Symptoms - Related Data Allergies Allergy/AdvReac Type Severity Reaction Status Date / Time No Known Allergies Allergy Verified 02/02/19 21:56 Home Meds: Home Meds Gabapentin [Neurontin] 300 mg PO BID 02/02/19 [History] Past Medical History HEENT History: Reports: Impaired Vision Cardiovascular History: Reports: CAD, High Cholesterol, [place], Stents Gastrointestinal History: Reports: GERD Other Gastrointestinal History: umbilical hernia repair with mesh Neurological History: Reports: Concussion, Migraines Endocrine/Metabolic History: Reports: Diabetes, Type II Dermatologic History: Reports: Other (See Below) Other Dermatologic History: scars to LFA, reports "Its from my diabetes but I dont remember what its called.". Denies Eczema and Psoriasis - Infectious Disease History Infectious Disease History: Reports: Chicken Pox, Mumps - Past Surgical History HEENT Surgical History: Reports: Tonsillectomy Cardiovascular Surgical History: Reports: Coronary Artery Stent GI Surgical History: Reports: Appendectomy, Hernia Repair/Other, Other (See Below) Other GI Surgeries/Procedures: umbilical hernia repair Endocrine Surgical History: Reports: None Neurological Surgical History: Reports: None Musculoskeletal Surgical History: Reports: Arthroscopic Knee, Other (See Below) Other Musculoskeletal Surgeries/Procedures:: bilat meniscus repair Social & Family History - Family History Family Medical History: Noncontributory - Caffeine Use Caffeine Use: Reports: Coffee ED ROS GENERAL - Review of Systems Review Of Systems: ROS reveals no pertinent complaints other than HPI. ED EXAM, GI/ABD - Physical Exam Exam: See Below Exam Limited By: No Limitations General Appearance: Alert, WD/WN, No Apparent Distress Ears: Normal External Exam Nose: Normal Inspection Throat/Mouth: Normal Inspection Head: Atraumatic, Normocephalic Neck: Normal Inspection Respiratory/Chest: No Respiratory Distress, Lungs Clear, Normal Breath Sounds Cardiovascular: Normal Peripheral Pulses, Regular Rate, Rhythm GI/Abdominal Exam: Tender (midline below umbilicus), Other (tender left lower abdominal wall area - superficial pain on palpation) (Male) Exam: No Hernia Course - Vital Signs Last Recorded V/S: Last Vital Signs Temp 36.9 C 02/02/19 21:48 Pulse 110 H 02/02/19 21:48 Resp 16 02/02/19 21:48 BP 121/78 02/02/19 21:48 Pulse Ox 96 02/02/19 21:48 Departure - Departure Time of Disposition: 22:30 Disposition: Home, Self-Care 01 Condition: Good Clinical Impression: Abdominal wall strain Qualifiers: Encounter type: initial encounter Qualified Code(s): S39.011A - Strain of muscle, fascia and tendon of abdomen, initial encounter - Discharge Information Referrals: PCP,None [Primary Care Provider] - - Problem List & Annotations (1) Abdominal wall strain SNOMED Code(s): 92943048, 304712405 Code(s): S39.011A - STRAIN OF MUSCLE, FASCIA AND TENDON OF ABDOMEN, INIT ENCNTR Status: Acute Current Visit: Yes Qualifiers: Encounter type: initial encounter Qualified Code(s): S39.011A - Strain of muscle, fascia and tendon of abdomen, initial encounter - Problem List Review Problem List Initiated/Reviewed/Updated: Yes - Assessment/Plan Plan: Patient counseled on supportive care and management. Discussed continued monitoring and f/u if symptoms persist or worsen. Counseled on medication use and f/u if any concerns. Discussed timeline of resolution of pain and f/u in clinic as routine with PCP in 1 week or less.
== END 2019-02-02 22:26 | disposition home or self-care (01) ==
LOC: LB.ED 21:38
DX: S39.011A Strain of muscle, fascia and tendon of abdomen, initial encounter (principal); E11.9 Type 2 diabetes mellitus without complications; I25.2 Old myocardial infarction; Z95.5 Presence of coronary angioplasty implant and graft; X50.0XXA Overexertion from strenuous movement or load, initial encounter
CPT/HCPCS: 99283; A9270-GY

== ENCOUNTER 2019-02-05 21:14 | Emergency (ER) | payer MEDICARE ==
[2019-02-05] MEDS ORDERED: Insulin Aspart 100 Units/ML 3 ML Pen ONE (21:30)
[2019-02-05] MEDS ORDERED: traMADol 50 MG Tab ONE (21:30)
[2019-02-05 21:35] VITALS: BP 131/70; PULSE 103
--- NOTE | 2019-02-05 21:57 | EDM.PDOC ---
ED HPI GENERAL MEDICAL PROBLEM - General Chief Complaint: General Stated Complaint: PAIN MANAGEMENT Time Seen by Provider: 02/05/19 21:35 Source of Information: Reports: Patient, RN History Limitations: Reports: No Limitations - History of Present Illness INITIAL COMMENTS - FREE TEXT/NARRATIVE: 58 yr male presents with lower abdominal pain, states has gotten worse in last few days and did have another ER visit a few days ago for this same thing. States his pain level is 8/10 and maybe 6/10 when eases with a hot bath, and was down to 4/10 when taking Tramadol. States he did have this pain before and after the hernia repair in July 2018 in [facility], with Dr Gonzalez. States he is eating and drinking ok. States last BM was about 5 days ago. States no burning with urination. States he does have 3 dogs at home and the pain is so bad he doesn't feel like taking care of the dogs, can't sleep because of the pain. States he tried to get into the clinic today and wasn't able to get an appointment. He does have an appointment next week to see the surgeon. He thinks the pain is from the mesh from his surgery. States hx of MA 2006, hx of diabetes, hx of umbilical hernia and inguinal hernia. States no hypertension. States he used to smoke 3 PPD of cigarettes and now smokes an occasional cigar. Right Lower Abdomen Pain Score (Numeric/FACES): 8 - Related Data Allergies Allergy/AdvReac Type Severity Reaction Status Date / Time No Known Allergies Allergy Verified 02/05/19 21:35 Home Meds: Home Meds Gabapentin [Neurontin] 300 mg PO BID 02/02/19 [History] Past Medical History HEENT History: Reports: Impaired Vision Cardiovascular History: Reports: CAD, High Cholesterol, [place], Stents Gastrointestinal History: Reports: GERD Other Gastrointestinal History: umbilical hernia repair with mesh Neurological History: Reports: Concussion, Migraines Endocrine/Metabolic History: Reports: Diabetes, Type II Dermatologic History: Reports: Other (See Below) Other Dermatologic History: scars to LFA, reports "Its from my diabetes but I dont remember what its called.". Denies Eczema and Psoriasis - Infectious Disease History Infectious Disease History: Reports: Chicken Pox, Mumps - Past Surgical History HEENT Surgical History: Reports: Tonsillectomy Cardiovascular Surgical History: Reports: Coronary Artery Stent GI Surgical History: Reports: Appendectomy, Hernia Repair/Other, Other (See Below) Other GI Surgeries/Procedures: umbilical hernia repair Endocrine Surgical History: Reports: None Neurological Surgical History: Reports: None Musculoskeletal Surgical History: Reports: Arthroscopic Knee, Other (See Below) Other Musculoskeletal Surgeries/Procedures:: bilat meniscus repair Social & Family History - Family History Family Medical History: Noncontributory - Caffeine Use Caffeine Use: Reports: Coffee ED ROS GENERAL - Review of Systems Review Of Systems: See Below Constitutional: Denies: Fever, Chills HEENT: Reports: No Symptoms Respiratory: Reports: No Symptoms Cardiovascular: Reports: No Symptoms Endocrine: Reports: Other (States previous diabetes) GI/Abdominal: Reports: Abdominal Pain. 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 ) Skin: Reports: No Symptoms ED EXAM, GI/ABD - Physical Exam Exam: See Below Exam Limited By: No Limitations General Appearance: Alert, No Apparent Distress Ears: Normal External Exam, Normal Canal, Hearing Grossly Normal Nose: Normal Inspection, Normal Mucosa, No Blood Throat/Mouth: Normal Inspection, Normal Voice, No Airway Compromise Head: Atraumatic, Normocephalic Neck: Normal Inspection, Supple, Non-Tender Respiratory/Chest: No Respiratory Distress, Lungs Clear, Normal Breath Sounds Cardiovascular: Normal Peripheral Pulses, Regular Rate, Rhythm, No Edema GI/Abdominal Exam: Normal Bowel Sounds, Soft, Tender. No: Distended, Rigid Back Exam: Full Range of Motion Extremities: Normal Range of Motion, Non-Tender, No Pedal Edema Neurological: Alert, Oriented, Normal Cognition Psychiatric: Normal Affect, Normal Mood Skin Exam: Warm, Dry, Normal Color Lymphatic: No Adenopathy Course - Vital Signs Last Recorded V/S: Last Vital Signs Temp 97.8 F 02/05/19 21:38 Pulse 103 H 02/05/19 21:38 Resp 20 02/05/19 21:38 BP 131/70 02/05/19 21:38 Pulse Ox 97 02/05/19 21:38 - Orders/Labs/Meds Labs: Laboratory Tests 02/05/19 02/05/19 02/05/19 Range/Units 21:52 22:00 22:00 WBC 9.7 (4.0-11.0) K/uL RBC 4.36 L (4.50-6.50) M/uL Hgb 14.4 (13.0-18.0) g/dL Hct 39.4 L (40.0-54.0) % MCV 90 (76-96) fL MCH 33.0 H (27.0-32.0) pg MCHC 36.5 H (31.0-35.0) g/dL RDW 13.0 (11.0-16.0) % Plt Count 206 (150-400) K/uL MPV 9.8 (6.0-10.0) fL Neut % (Auto) 53.3 (45.0-70.0) % Lymph % (Auto) 37.8 (20.0-40.0) % Walton % (Auto) 6.6 (3.0-10.0) % Eos % (Auto) 2.1 (1.0-5.0) % Baso % (Auto) 0.2 (0.0-0.5) % Neut # (Auto) 5.14 (2.00-7.50) K/uL Lymph # (Auto) 3.65 (1.50-4.00) K/uL Walton # (Auto) 0.64 (0.20-0.80) K/uL Eos # (Auto) 0.20 (0.04-0.40) K/uL Baso # (Auto) 0.02 (0.02-0.10) K/uL Sodium 132 L (136-145) mmol/L Potassium 4.4 (3.5-5.1) mmol/L Chloride 95 L (98-107) mmol/L Carbon Dioxide 24.3 (21.0-32.0) mmol/L Anion Gap 17.1 H (5.0-15.0) mmol/L BUN 35 H D (8-26) mg/dL Creatinine 1.45 H D (0.70-1.30) mg/dL Est Cr Clr Drug Dosing 53.07 mL/min Estimated GFR (MDRD) 50 L (>60) MLS/MIN BUN/Creatinine Ratio 24.1 (6-25) Glucose 556 H* D (74-100) mg/dL Calcium 9.0 (8.5-10.1) mg/dL Total Bilirubin 0.4 D (0.0-1.0) mg/dL AST 8 L (15-37) U/L ALT 16 (12-78) U/L Alkaline Phosphatase 121 H (46-116) U/L Total Protein 6.7 (6.4-8.2) g/dL Albumin 3.8 (3.4-5.0) g/dL Globulin 2.9 (2.2-4.2) g/dL Albumin/Globulin Ratio 1.3 (0.8-2.0) Amylase 35 (25-115) U/L Lipase 64 L D (73-393) U/L Urine Color Yellow Urine Appearance Clear (CLEAR) Urine pH 5.0 (5.0-8.0) Ur Specific [place] <= 1.005 (1.003-1.030) Urine Protein Negative (NEGATIVE) mg/dL Urine Glucose (UA) 500 H (NEGATIVE) mg/dL Urine Ketones Negative (NEGATIVE) mg/dL Urine Occult Blood Negative (NEGATIVE) Urine Nitrite Negative (NEGATIVE) Urine Bilirubin Negative (NEGATIVE) Urine Urobilinogen 0.2 (0.2-1.0) E.U./dL Ur Leukocyte Esterase Negative (NEGATIVE) Meds: Medications Discontinued Medications Generic Name Dose Route Start Last Admin Trade Name Freq PRN Reason Stop Dose Admin Insulin Aspart 6 unit 02/05/19 22:41 Novolog SUBCUT 02/05/19 22:42 ONETIME ONE Protocol - Re-Assessments/Exams Free Text/Narrative Re-Assessment/Exam: 02/05/19 23:20 Reviewed labs with pt. Elevated BS noted. Novolog 6 units sq per pen given by pt. Novolog pen is from the ER. Pt does have a BS monitor at home, but doesn't have anymore Novolog. He was using Novolog before meals and quit taking it when he lost 100 pounds and limited simple carbs. Lately he states he has been having sugary cereal for breakfast and sugar to his coffee. Novolog pen sent home with pt. with instruction to take BS before meals and if >250 to use Novolog 6 units sq. Return to PCP this week for Follow-up from ER and for elevated blood sugars. Pt states he will watch his diet intake and control the BS with this. Departure - Departure Time of Disposition: 22:52 Disposition: Home, Self-Care 01 Condition: Good Clinical Impression: Elevated blood sugar, Abdominal pain - Discharge Information Instructions: Tramadol tablets, Type 2 Diabetes Mellitus, Self Care, Adult, [id number] Referrals: PCP,None [Primary Care Provider] - Forms: ED Department Discharge Additional Instructions: Discharge home. Tramadol 1 tablet every 6-8 hours as needed for pain. Alternate Tylenol and Ibuprofen as directed. Follow up with Dr. Gonzalez on February 12. Call the clinic tomorrow morning and let them know you were seen in the ER tonight. Call or return to the clinic if you have any questions or concerns. - Assessment/Plan Plan: Elevated Blood sugar: Resume Novolog pen sq before meals if BS >250. Tramadol 1 tablet every 6-8 hour prn pain to abdomen. Continue with schedule every 4 hour of Tylenol or Ibuprofen for his pain and use Tramadol for severe pain prn, not resolved with Tylenol and Ibuprofen. RTC tomorrow and make appointment with PCP for follow-up. Keep scheduled appointment with surgeon next week in [place].
[2019-02-05] MEDS ORDERED: Insulin Aspart 100 Units/ML 3 ML Pen SUBCUT ONE (22:41)
== END 2019-02-05 22:52 | disposition home or self-care (01) ==
LOC: LB.ED 21:14
DX: E11.65 Type 2 diabetes mellitus with hyperglycemia (principal); R10.31 Right lower quadrant pain; I25.2 Old myocardial infarction; Z95.5 Presence of coronary angioplasty implant and graft
CPT/HCPCS: 36415; 80053; 81003; 82150; 83690; 85025; 96372; 99283; 99284-25; A9270-GY; J1815-GY

== ENCOUNTER 2019-03-28 16:33 | Emergency (ER) | payer MEDICARE, OTHER ==
[2019-03-28 16:46] VITALS: BP 134/92; PULSE 104
[2019-03-28] MEDS ORDERED: Ketorolac 30 MG/ML SDV IVPUSH ONE (17:23)
[2019-03-28] MEDS ORDERED: Sodium Chloride 0.9% 50 ML SDV FLUSH ONE (17:25)
[2019-03-28] MEDS ORDERED: Iodixanol 652 MG/ML 100 ML Bottle IV SCH (17:30)
[2019-03-28] MEDS ORDERED: Ketorolac 30 MG/ML SDV ONE (17:32)
--- NOTE | 2019-03-28 17:52 | EDM.PDOC ---
ED HPI GENERAL MEDICAL PROBLEM - General Chief Complaint: Abdominal Pain Stated Complaint: 03/24/19 LIFTING PAIN Time Seen by Provider: 03/28/19 17:00 Source of Information: Reports: Patient, RN Notes Reviewed History Limitations: Reports: No Limitations - History of Present Illness INITIAL COMMENTS - FREE TEXT/NARRATIVE: This patient presents with abdominal pain. He states he was lifting something heavy 5 days ago and developed the pain. It has gotten worse since that time. he states he has used tylenol but says that it is not helping. He has a history of hernias with an umbilcal and inguinal repair in the past and believes he may have another one now. 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 He thinks he has diabetes again now because he has been getting up during the night to urinate. He has had some nausea with the pain but has been eating and drinking without vomiting or diarrhea. He denies other symptoms or concerns. Onset: Sudden Onset Date: 03/25/19 Duration: Getting Worse Location: Reports: Abdomen - Related Data Allergies Allergy/AdvReac Type Severity Reaction Status Date / Time No Known Allergies Allergy Verified 03/28/19 16:38 Home Meds: Home Meds Gabapentin [Neurontin] 300 mg PO BID 02/02/19 [History] Past Medical History HEENT History: Reports: Impaired Vision Cardiovascular History: Reports: CAD, High Cholesterol, [place], Stents Gastrointestinal History: Reports: GERD Other Gastrointestinal History: umbilical hernia repair with mesh Neurological History: Reports: Concussion, Migraines Endocrine/Metabolic History: Reports: Diabetes, Type II Dermatologic History: Reports: Other (See Below) Other Dermatologic History: scars to LFA, reports "Its from my diabetes but I dont remember what its called.". Denies Eczema and Psoriasis - Infectious Disease History Infectious Disease History: Reports: Chicken Pox, Mumps - Past Surgical History HEENT Surgical History: Reports: Tonsillectomy Cardiovascular Surgical History: Reports: Coronary Artery Stent GI Surgical History: Reports: Appendectomy, Hernia Repair/Other, Other (See Below) Other GI Surgeries/Procedures: umbilical hernia repair Endocrine Surgical History: Reports: None Neurological Surgical History: Reports: None Musculoskeletal Surgical History: Reports: Arthroscopic Knee, Other (See Below) Other Musculoskeletal Surgeries/Procedures:: bilat meniscus repair Social & Family History - Family History Family Medical History: Noncontributory - Tobacco Use Smoking Status *Q: Never Smoker - Caffeine Use Caffeine Use: Reports: Coffee ED ROS GENERAL - Review of Systems Review Of Systems: See Below Constitutional: Reports: Weight Gain. Denies: Fever, Decreased Appetite HEENT: Denies: No Symptoms Respiratory: Denies: No Symptoms Cardiovascular: Denies: No Symptoms Endocrine: Reports: Polyuria GI/Abdominal: Reports: Abdominal Pain, Nausea. Denies: Diarrhea, Decreased Appetite, Difficulty Swallowing, Distension, Vomiting : Reports: No Symptoms Musculoskeletal: Reports: No Symptoms Skin: Reports: No Symptoms ED EXAM, GI/ABD - Physical Exam Exam: See Below Exam Limited By: No Limitations General Appearance: Alert, WD/WN, No Apparent Distress Eyes: Bilateral: Normal Appearance Ears: Normal External Exam Nose: Normal Inspection Throat/Mouth: Normal Inspection Head: Atraumatic, Normocephalic Neck: Normal Inspection, Full Range of Motion Respiratory/Chest: No Respiratory Distress, Lungs Clear, Normal Breath Sounds, No Accessory Muscle Use GI/Abdominal Exam: Normal Bowel Sounds, Soft, No Distention, No Mass, Other ( Tenderness with palpation just below the umbilicus. Complains of pain in this area when other abdominal quadrants are palpated.) Extremities: Normal Inspection Neurological: Alert, Oriented Psychiatric: Normal Affect Skin Exam: Warm, Dry Course - Vital Signs Last Recorded V/S: Last Vital Signs Temp 36.2 C 03/28/19 16:40 Pulse 104 H 03/28/19 16:40 Resp 20 03/28/19 16:40 BP 134/92 H 03/28/19 16:40 Pulse Ox 97 03/28/19 16:40 - Orders/Labs/Meds Orders: Active Orders 24 hr Category Date Time Status Abdomen Pelvis w Cont [CT] Stat Exams 03/28/19 17:03 Taken Iodixanol [Visipaque 320] Med 03/28/19 17:30 Active 100 ml IV . DIRECTED Medication Orders Iodixanol (Visipaque 320) 100 ml IV . DIRECTED NANNETTE Last Admin: 03/28/19 17:38 Dose: 100 ml Labs: Laboratory Tests 03/28/19 Range/Units 17:12 Sodium 133 L (136-145) mmol/L Potassium 4.1 (3.5-5.1) mmol/L Chloride 96 L (98-107) mmol/L Carbon Dioxide 21.1 (21.0-32.0) mmol/L Anion Gap 20.0 H (5.0-15.0) mmol/L BUN 21 D (8-26) mg/dL Creatinine 0.89 D (0.70-1.30) mg/dL Est Cr Clr Drug Dosing 86.46 mL/min Estimated GFR (MDRD) > 60 (>60) MLS/MIN BUN/Creatinine Ratio 23.6 (6-25) Glucose 300 H D (74-100) mg/dL Calcium 8.9 (8.5-10.1) mg/dL Meds: Medications Generic Name Dose Route Start Last Admin Trade Name Freq PRN Reason Stop Dose Admin Iodixanol 100 ml 03/28/19 17:30 03/28/19 17:38 Visipaque 320 IV 100 ml . DIRECTED NANNETTE Administration Discontinued Medications Generic Name Dose Route Start Last Admin Trade Name Freq PRN Reason Stop Dose Admin Ketorolac Tromethamine 30 mg 03/28/19 17:23 03/28/19 17:27 Toradol IVPUSH 03/28/19 17:24 30 mg ONETIME ONE Administration Ketorolac Tromethamine Confirm 03/28/19 17:32 03/28/19 17:31 Toradol Administered 03/28/19 17:33 Not Given Dose 30 mg .ROUTE .STK-MED ONE Metformin HCl Confirm 03/28/19 18:35 Glucophage Administered 03/28/19 18:36 Dose 2,000 mg .ROUTE .STK-MED ONE Sodium Chloride 50 ml 03/28/19 17:25 03/28/19 17:38 Normal Saline FLUSH 03/28/19 17:26 50 ml ONETIME ONE Administration - Re-Assessments/Exams Free Text/Narrative Re-Assessment/Exam: 03/28/19 19:23 This patient presents with abdominal pain as detailed above. A broad differential diagnosis was considered including hernia, gall bladder disease, pancreatitis, diverticular disease, bowel obstruction, volvulus, intussusception , gastritis and peptic ulcer disease, gastro intestinal infection, inflammatory bowel disease, peritonitis, kidney stones, UTI, mesenteric lymphadenopathy, IBS. The workup in the ED is at this point negative. No definitive etiology for the patients pain is found at this point and my suspicion of an intraabdominal catastrophe or other worrisome etiology is low. Imaging studies show no acute findings. There is no indication for admission at this time for serial exams and further workup. Patient is hemodynamically stable in UR. Plan is home with 12 hour abdominal pain recheck by primary care physician or return to ED at that time. Return for fevers greater than 102, increasing pain, other new symptoms develop. Abdominal pain instructions given to patient. Questions were answered. The patient was noted to be hyperglycemia tonight with a non-fasting serum blood sugar of 300. He was given metformin 500 mg tabs to be used twice per day until he is seen in the clinic on Tuesday, 03/30. Departure - Departure Time of Disposition: 18:40 Disposition: Home, Self-Care 01 Condition: Good Clinical Impression: Abdominal pain, Hyperglycemia - Discharge Information *PRESCRIPTION DRUG MONITORING PROGRAM REVIEWED*: No Instructions: Hyperglycemia, Abdominal Pain, Adult, [id number] Referrals: PCP,None [Primary Care Provider] - Forms: ED Department Discharge, ED Return to Work/School Form Care Plan Goals: Follow up in clinic on Tuesday to talk about diabetic management. Contact hospital if pain gets worse, you notice abdominal swelling, or if you are unable to void or have a BM. Call with any questions [phone]. - My Orders Last 24 Hours: My Active Orders 03/28/19 17:03 Abdomen Pelvis w Cont [CT] Stat 03/28/19 17:30 Iodixanol [Visipaque 320] 100 ml IV . DIRECTED - Assessment/Plan Last 24 Hours: My Active Orders 03/28/19 17:03 Abdomen Pelvis w Cont [CT] Stat 03/28/19 17:30 Iodixanol [Visipaque 320] 100 ml IV . DIRECTED
[2019-03-28] MEDS ORDERED: metFORMIN 500 MG Tab ONE (18:35)
--- NOTE | 2019-03-30 07:28 | CT ---
Date of Service: 03/28/19 Clinical Data: Abd pain ENHANCED ABDOMEN AND PELVIC CT: Multislice acquisition through the abdomen and pelvis with IV, but without oral contrast was performed. Comparison is made to a prior exam dated 08/11/18. There are minimal atelectatic changes in the dependent portions of both lower lungs. The lung bases otherwise clear. The heart size is normal. There are mild coronary artery calcifications. There is a small pericardial effusion. There is diffuse fatty infiltration of the liver. No focal hepatic lesions. The gallbladder appears normal. No biliary duct dilatation. The spleen appears normal. The pancreas appears normal. The right and left adrenals appear normal. The right and left kidneys appear normal and enhance symmetrically. No hydronephrosis or hydroureter. The bladder is fluid filled. It appears normal. The prostate is mildly enlarged. No evidence of appendicitis. There is diverticulosis of the descending and sigmoid colon. No evidence of diverticulitis. No free air. No free fluid. No dilated loops of bowel. No adenopathy. No aortic aneurysm. IMPRESSION: No acute abnormalities. [id number] [facility]
== END 2019-03-28 18:45 | disposition home or self-care (01) ==
LOC: LB.ED 16:33
DX: R10.30 Lower abdominal pain, unspecified (principal); E11.65 Type 2 diabetes mellitus with hyperglycemia; I25.10 Atherosclerotic heart disease of native coronary artery without angina pectoris; I25.2 Old myocardial infarction; Z95.5 Presence of coronary angioplasty implant and graft
CPT/HCPCS: 36415; 74177; 80048; 99284-25; J1885

== ENCOUNTER 2019-10-14 00:27 | Emergency (ER) | payer MEDICARE ==
[2019-10-14] MEDS ORDERED: Ketorolac 60 MG/2 ML SDV IM STA (01:15)
--- NOTE | 2019-10-14 02:13 | ER ---
REASON FOR EMERGENCY ROOM VISIT: Abdominal pain. HISTORY: This 59-year-old gentleman comes in after developing acute periumbilical pain after lifting a heavy 150 pounds outboard motor this afternoon. He states in the course of lifting this, he felt a popping sensation and he states that it felt like something tore in his umbilical area. He has had no GI symptoms. No nausea or vomiting or diarrhea. He has had an umbilical herniorrhaphy with mesh a couple of years ago. Interestingly, he has been to the emergency room on a number of occasions for similar episodes involving heavy lifting which was followed by acute abdominal pain, and he has had at least 6 prior visits in the last 2 years for acute abdominal pain, often following heavy lifting, none of which materialized as far as any type of hernia is concerned. He does have a history of inguinal hernia repair as well as in the past in addition to his umbilical hernia repair. PAST MEDICAL HISTORY: Significant for: 1. Coronary artery disease with a history of ND and stents. 2. Hypercholesterolemia. 3. Migraines. 4. Possible type 2 diabetes mellitus. 5. Appendectomy. 6. Right inguinal hernia repair. 7. Bilateral arthroscopic knee surgery. MEDICATIONS: Include gabapentin (please see EMR). ALLERGIES: NO KNOWN DRUG ALLERGIES. REVIEW OF SYSTEMS: Pertinent positives and negatives as listed in the HPI. PHYSICAL EXAMINATION: GENERAL: He is afebrile. He is calm and in no acute distress. ABDOMEN: Obese. He has infraumbilical and right lower quadrant surgical scars present. He has normal bowel sounds. His abdomen is soft and nontender, except he does have some mild tenderness on palpation immediately over the infraumbilical scar from his previous herniorrhaphy. Nonetheless, no mass can be palpated in this area. There is certainly nothing to suggest an incarceration or strangulation, and I cannot appreciate any kind of fascial defect. IMPRESSION: Abdominal wall strain secondary to heavy lifting. PLAN: I informed him it is entirely possible that some of the mesh could have torn partially away from where it is sutured onto the fascia, but at this point, there is no evidence of a hernia. It is more likely to be a strain or possibly something mechanically related to his mesh in this area, although on palpation, I cannot appreciate any significant bulge or suggestion of hernia. We did give him a shot of Toradol 60 mg IM and told him to go easy on the heavy lifting for the next couple of days. If he continues to develop increasing abdominal pain or notices a bulge in the area, he should definitely be seen, and if a hernia is present, obviously he will have to be referred to a surgeon for repair. He understands and agrees. All questions were answered. CHRISTOPHER/RAQUEL /[id number]
[2019-10-14 03:09] VITALS: BP 146/91; PULSE 77
== END 2019-10-14 01:20 | disposition home or self-care (01) ==
LOC: LB.ED 00:27
DX: S39.011A Strain of muscle, fascia and tendon of abdomen, initial encounter (principal); G43.909 Migraine, unspecified, not intractable, without status migrainosus; I25.2 Old myocardial infarction; I25.10 Atherosclerotic heart disease of native coronary artery without angina pectoris; Z95.5 Presence of coronary angioplasty implant and graft; X50.0XXA Overexertion from strenuous movement or load, initial encounter
CPT/HCPCS: 96372; 99283; J1885

== ENCOUNTER 2019-10-15 09:40 | Emergency (ER) | payer MEDICARE ==
[2019-10-15 10:08] VITALS: BP 132/87; PULSE 101
[2019-10-15] MEDS ORDERED: Acetaminophen/HYDROcodone 325-5 MG Tab PO ONE (10:32)
--- NOTE | 2019-10-15 12:19 | CT ---
DATE OF SERVICE: 10/15/2019 CLINICAL DATA: Periumbilical pain, strangulated hernia? Enhanced abdomen and pelvic CT: Multislice acquisition through the abdomen and pelvis with IV, but without oral contrast was performed. Comparison is made to a prior exam dated 28 March 2019. There are mild atelectatic changes in the dependent portion of both lower lungs. Lung bases are otherwise clear. There is gas noted within the distal esophagus. This is most likely secondary to GE reflux. The heart size is normal. There is a small pericardial effusion. There is diffuse gastric wall thickening. This is probably related to nondistention. Gastritis should be considered. There is mild diffuse fatty infiltration of the liver. No focal hepatic lesions. The gallbladder appears normal. No biliary duct dilatation. The spleen appears normal. The pancreas appears normal. The right and left adrenal appear normal. The right and left kidneys enhance symmetrically. No hydronephrosis or hydroureter. The bladder is fluid filled. It appears normal. The prostate is mildly enlarged. There are calcifications within the prostate consistent with chronic prostatitis. No evidence of appendicitis. There is a moderate amount of gas and stool present throughout the colon. There are multiple loops of small bowel within the left abdomen with apparent mural thickening. A couple of these are minimally distended. Enteritis or other infectious or inflammatory processes should be considered. There is mild diverticulosis of the descending and sigmoid colon. No evidence of diverticulitis. No dilated loops of bowel. No free air. No free fluid. No adenopathy. No aortic aneurysm or dissection. There is a small fat containing umbilical hernia. It is unchanged in appearance from the prior exam. There is degenerative disc disease throughout the lower thoracic and lumbar spine. No other significant findings. [facility]
--- NOTE | 2019-10-15 12:52 | EDM.PDOC ---
ED HPI GENERAL MEDICAL PROBLEM - General Chief Complaint: General Stated Complaint: HERNIA FROM LIFTING 10/13/19 Time Seen by Provider: 10/15/19 09:55 Source of Information: Reports: Patient History Limitations: Reports: No Limitations - History of Present Illness INITIAL COMMENTS - FREE TEXT/NARRATIVE: pt arrives to the ER today with no change to his umbilical abdominal pain when he was seen in the ER this last weekend. pt requests second opinion. he states pain is steady 8-9/10 with no relief from OTC meds, some relief with repositioning. Patient denies fever, chills, nausea, vomiting, diarrhea, constipation, change in appetite. Past medical history significant for right side inguinal hernia repair about 1 year ago, umbilical hernia repair with mesh many years ago. Patient states onset of pain was about 2 days ago when he was lifting 150 pounds from ground feeling a "tearing sensation" in his periumbilical region since then it has been increasingly tender with unremitting pain to that area. no new symptoms since onset. Improves with: Reports: Immobilization Worsens with: Reports: Movement Abdomen Pain Score (Numeric/FACES): 9 - Related Data Allergies Allergy/AdvReac Type Severity Reaction Status Date / Time No Known Allergies Allergy Verified 10/14/19 03:02 Home Meds: Home Meds Gabapentin [Neurontin] 300 mg PO BID 02/02/19 [History] Gabapentin [Neurontin] 300 mg PO BID 7 Days #14 cap 10/15/19 [Rx] Insulin Aspart [NovoLOG] 10 unit SUBCUT TIDMEALS 10/15/19 [History] traMADol [Ultram] 50 mg PO BID PRN #14 tablet 10/15/19 [Rx] Past Medical History HEENT History: Reports: Impaired Vision Cardiovascular History: Reports: CAD, High Cholesterol, [place], Stents Gastrointestinal History: Reports: GERD Other Gastrointestinal History: umbilical hernia repair with mesh Neurological History: Reports: Concussion, Migraines Endocrine/Metabolic History: Reports: Diabetes, Type II Dermatologic History: Reports: Other (See Below) Other Dermatologic History: scars to LFA, reports "Its from my diabetes but I dont remember what its called.". Denies Eczema and Psoriasis - Infectious Disease History Infectious Disease History: Reports: Chicken Pox, Mumps - Past Surgical History HEENT Surgical History: Reports: Tonsillectomy Cardiovascular Surgical History: Reports: Coronary Artery Stent GI Surgical History: Reports: Appendectomy, Hernia Repair/Other, Other (See Below) Other GI Surgeries/Procedures: umbilical hernia repair Endocrine Surgical History: Reports: None Neurological Surgical History: Reports: None Musculoskeletal Surgical History: Reports: Arthroscopic Knee, Other (See Below) Other Musculoskeletal Surgeries/Procedures:: bilat meniscus repair Social & Family History - Family History Family Medical History: Noncontributory - Tobacco Use Smoking Status *Q: Former Smoker Years of Tobacco use: 25 Used Tobacco, but Quit: Yes Month/Year Tobacco Last Used: 04/2016 - Caffeine Use Caffeine Use: Reports: Coffee, Soda - Recreational Drug Use Recreational Drug Use: No ED ROS GENERAL - Review of Systems Review Of Systems: Comprehensive ROS is negative, except as noted in HPI. ED EXAM, GENERAL - Physical Exam Exam: See Below Exam Limited By: No Limitations General Appearance: Alert, WD/WN Eye Exam: Bilateral Eye: EOMI, PERRL Respiratory/Chest: No Respiratory Distress, Lungs Clear, Normal Breath Sounds, No Accessory Muscle Use, Chest Non-Tender Cardiovascular: Normal Peripheral Pulses, Regular Rate, Rhythm, No Edema, No Gallop, No Murmur, No Rub Peripheral Pulses: 2+: Radial (L), Radial (R), Dorsalis Pedis (L), Dorsalis Pedis (R) GI/Abdominal: Normal Bowel Sounds, Soft, Tender (Tender periumbilical region,) Course - Vital Signs Last Recorded V/S: Last Vital Signs Temp 97.8 F 10/15/19 09:54 Pulse 101 H 10/15/19 09:54 Resp 18 10/15/19 09:54 BP 132/87 10/15/19 09:54 Pulse Ox 98 10/15/19 09:54 - Orders/Labs/Meds Labs: Laboratory Tests 10/15/19 10/15/19 Range/Units 10:25 10:25 WBC 6.9 D (4.0-11.0) K/uL RBC 4.78 (4.50-6.50) M/uL Hgb 15.5 (13.0-18.0) g/dL Hct 42.6 (40.0-54.0) % MCV 89 (76-96) fL MCH 32.4 H (27.0-32.0) pg MCHC 36.4 H (31.0-35.0) g/dL RDW 13.1 (11.0-16.0) % Plt Count 206 (150-400) K/uL MPV 9.8 (6.0-10.0) fL Neut % (Auto) 58.7 (45.0-70.0) % Lymph % (Auto) 31.4 (20.0-40.0) % [place] % (Auto) 7.4 (3.0-10.0) % Eos % (Auto) 2.2 (1.0-5.0) % Baso % (Auto) 0.3 (0.0-0.5) % Neut # (Auto) 4.02 (2.00-7.50) K/uL Lymph # (Auto) 2.15 (1.50-4.00) K/uL [place] # (Auto) 0.51 (0.20-0.80) K/uL Eos # (Auto) 0.15 (0.04-0.40) K/uL Baso # (Auto) 0.02 (0.02-0.10) K/uL Sodium 138 (136-145) mmol/L Potassium 4.5 (3.5-5.1) mmol/L Chloride 102 (98-107) mmol/L Carbon Dioxide 24.5 (21.0-32.0) mmol/L Anion Gap 16.0 H (5.0-15.0) mmol/L BUN 16 D (8-26) mg/dL Creatinine 0.77 (0.70-1.30) mg/dL Est Cr Clr Drug Dosing 98.70 mL/min Estimated GFR (MDRD) > 60 (>60) MLS/MIN BUN/Creatinine Ratio 20.8 (6-25) Glucose 292 H (74-100) mg/dL Calcium 9.1 (8.5-10.1) mg/dL Total Bilirubin 0.5 (0.0-1.0) mg/dL AST 11 L (15-37) U/L ALT 18 (12-78) U/L Alkaline Phosphatase 76 (46-116) U/L Total Protein 6.7 (6.4-8.2) g/dL Albumin 3.6 (3.4-5.0) g/dL Globulin 3.1 (2.2-4.2) g/dL Albumin/Globulin Ratio 1.2 (0.8-2.0) Meds: Medications Discontinued Medications Generic Name Dose Route Start Last Admin Trade Name Freq PRN Reason Stop Dose Admin Hydrocodone Bitart/Acetaminophen 1 tab 10/15/19 10:32 10/15/19 10:47 [place] 325-5 Mg PO 10/15/19 10:33 1 tab ONETIME ONE Administration Departure - Departure Time of Disposition: 12:20 Disposition: Home, Self-Care 01 Condition: Good Clinical Impression: Abdominal pain - Discharge Information *PRESCRIPTION DRUG MONITORING PROGRAM REVIEWED*: Yes *COPY OF PRESCRIPTION DRUG MONITORING REPORT IN PATIENT BESSIE: No Prescriptions: Gabapentin [Neurontin] 300 mg PO BID 7 Days #14 cap traMADol [Ultram] 50 mg PO BID PRN #14 tablet PRN Reason: Pain Instructions: Gabapentin extended-release tablets ([place]), Tramadol tablets Referrals: PCP,None [Primary Care Provider] - Forms: ED Department Discharge Additional Instructions: follow up with primary care RACHEL for recheck, medication refills, all your regular healthcare needs no changes to your hernia or other acute processes noted to your abdomen today. 7 days of your regular medications refilled today so you can get in to the clinic Sepsis Event Note (ED) - Evaluation Sepsis Screening Result: No Definite Risk - Focused Exam Vital Signs: Vital Signs Temp Pulse Resp BP Pulse Ox 10/15/19 09:54 97.8 F 101 H 18 132/87 98 - Problem List & Annotations (1) Abdominal pain SNOMED Code(s): 50615615 Code(s): R10.9 - UNSPECIFIED ABDOMINAL PAIN Status: Acute Onset Date: ~ Annotation/Comment:: 11/22/17 - 1. Abdominal pain, acute on chronic, 2. Weight loss 11/20/17 - 1. Abdominal pain. I suspect diabetic gastroparesis. 2. Dehydration - Problem List Review Problem List Initiated/Reviewed/Updated: Yes - Assessment/Plan Assessment:: abdominal pain Plan: follow up with PCP office [facility] for recheck, medication refills, referrals as necessary to surgery or pain clinic.
== END 2019-10-15 12:55 | disposition home or self-care (01) ==
LOC: LB.ED 09:40
DX: R10.33 Periumbilical pain (principal); I25.10 Atherosclerotic heart disease of native coronary artery without angina pectoris; I10 Essential (primary) hypertension; Z95.5 Presence of coronary angioplasty implant and graft; E11.9 Type 2 diabetes mellitus without complications; Z79.4 Long term (current) use of insulin; Z79.899 Other long term (current) drug therapy; Z87.891 Personal history of nicotine dependence
CPT/HCPCS: 36415; 74177; 80053; 85025; 99284; A9270

== ENCOUNTER 2021-04-20 23:31 | Emergency (ER) | payer MEDICARE ==
[2021-04-20] MEDS ORDERED: Acetaminophen/HYDROcodone 325-5 MG Tab ONE (23:40)
--- NOTE | 2021-04-21 07:42 | EDM.PDOC ---
ED HPI GENERAL MEDICAL PROBLEM - General Chief Complaint: Lower Extremity Injury/Pain Stated Complaint: KNEE PAIN Time Seen by Provider: 04/21/21 00:00 - History of Present Illness INITIAL COMMENTS - FREE TEXT/NARRATIVE: Pt is here with C/O Rt knee pain after falling on the ice this afternoon while fishing. He has been resting the knee and using ice packs. He can bear weight with severe pain, and is limping. He cannot use Nsaid's due to diabetes. He did use an old Ultram tab tonite but it only helped a little.. He has had multiple knee injuries on both sides in the past. Treatments TRANSFORMER MECHANIC: Reports: Other (see below) Other Treatments TRANSFORMER MECHANIC: Tramadol - Related Data Allergies Allergy/AdvReac Type Severity Reaction Status Date / Time No Known Allergies Allergy Verified 04/21/21 00:39 Home Meds: Home Meds Gabapentin [Neurontin] 300 mg PO BID 02/02/19 [History] Gabapentin [Neurontin] 300 mg PO BID 7 Days #14 cap 10/15/19 [Rx] Insulin Aspart [NovoLOG] 10 unit SUBCUT TIDMEALS 10/15/19 [History] traMADol [Ultram] 50 mg PO BID PRN #14 tablet 10/15/19 [Rx] Past Medical History HEENT History: Reports: Impaired Vision Cardiovascular History: Reports: CAD, High Cholesterol, [place], Stents Respiratory History: Reports: None Gastrointestinal History: Reports: GERD Other Gastrointestinal History: umbilical hernia repair with mesh Genitourinary History: Reports: None Musculoskeletal History: Reports: None Neurological History: Reports: Concussion, Migraines Psychiatric History: Reports: None Endocrine/Metabolic History: Reports: Diabetes, Type II Hematologic History: Reports: None Immunologic History: Reports: None Oncologic (Cancer) History: Reports: None Dermatologic History: Reports: Other (See Below) Other Dermatologic History: scars to LFA, reports "Its from my diabetes but I dont remember what its called.". Denies Eczema and Psoriasis - Infectious Disease History Infectious Disease History: Reports: Chicken Pox, Mumps - Past Surgical History Head Surgeries/Procedures: Reports: None HEENT Surgical History: Reports: Tonsillectomy Cardiovascular Surgical History: Reports: Coronary Artery Stent Respiratory Surgical History: Reports: None GI Surgical History: Reports: Appendectomy, Hernia Repair/Other, Other (See Below) Other GI Surgeries/Procedures: umbilical hernia repair Male Surgical History: Reports: None Endocrine Surgical History: Reports: None Neurological Surgical History: Reports: None Musculoskeletal Surgical History: Reports: Arthroscopic Knee, Other (See Below) Other Musculoskeletal Surgeries/Procedures:: bilat meniscus repair Oncologic Surgical History: Reports: None Social & Family History - Family History Family Medical History: No Pertinent Family History - Tobacco Use Tobacco Use Status *Q: Never Tobacco User - Caffeine Use Caffeine Use: Reports: Coffee Other Caffeine Use: couple cups a day - Recreational Drug Use Recreational Drug Use: No Review of Systems - Review of Systems Review Of Systems: Comprehensive ROS is negative, except as noted in HPI. Musculoskeletal: Reports: Other (Rt knee pain due to injury.) ED EXAM, GENERAL - Physical Exam Exam: See Below Extremities: Other (Examining his Rt knee reveals moderate swelling that does go below the knee, with a small bruise below the knee. He does not want to bend the knee at all. Skin is intact.) Course - Orders/Labs/Meds Orders: Active Orders 24 hr Category Date Time Status Knee 3V Rt [CR] Stat Exams 04/21/21 00:27 Taken - Re-Assessments/Exams Free Text/Narrative Re-Assessment/Exam: 04/21/21 07:40 X-RAY of the knee is negative for fracture or acute abnormality. He will be given [place] tabs for pain. Rafy wrap applied by nursing. Light duty activity for a few days. We will see about scheduling him for an MRI this week. This looks like a possible ACL injury. Pt has no further questions. Departure - Departure Time of Disposition: 00:45 Disposition: Home, Self-Care 01 Condition: Good Clinical Impression: Sprain of knee - Discharge Information *PRESCRIPTION DRUG MONITORING PROGRAM REVIEWED*: No *COPY OF PRESCRIPTION DRUG MONITORING REPORT IN PATIENT BESSIE: No Instructions: Acute Knee Pain, Adult Referrals: PCP,None [Primary Care Provider] - Forms: ED Department Discharge Additional Instructions: Take Hydrocodone 5/325 one tab every 4-6 hours as needed for pain. You will receive a call with appt for MRI when scheduled. Call facility if you do not receive call in next couple of days. DC instructions given. Verb understanding. See DC flow sheed. Sepsis Event Note (ED) - Evaluation Sepsis Screening Result: No Definite Risk - My Orders Last 24 Hours: My Active Orders 04/21/21 00:27 Knee 3V Rt [CR] Stat - Assessment/Plan Last 24 Hours: My Active Orders 04/21/21 00:27 Knee 3V Rt [CR] Stat
--- NOTE | 2021-04-21 10:32 | CR ---
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 There is a moderate-sized joint effusion. No acute fracture or dislocation. No lytic or blastic bone lesions. [id number] [facility]
== END 2021-04-21 01:10 | disposition home or self-care (01) ==
LOC: LB.ED 23:31
DX: S83.91XA Sprain of unspecified site of right knee, initial encounter (principal); I25.10 Atherosclerotic heart disease of native coronary artery without angina pectoris; I25.2 Old myocardial infarction; E11.9 Type 2 diabetes mellitus without complications; Z79.4 Long term (current) use of insulin; Z79.899 Other long term (current) drug therapy; W18.30XA Fall on same level, unspecified, initial encounter
CPT/HCPCS: 99283; A9270

== ENCOUNTER 2021-08-24 22:51 | Emergency (ER) | payer MEDICARE ==
[2021-08-24] MEDS: Aspirin 81 MG Tab.Chew PO ONE (22:55)
[2021-08-24] MEDS: Nitroglycerin 0.4 MG Tab.SL SL ONE (22:56)
[2021-08-24] MEDS: Ondansetron 4 MG/2 ML SDV IVPUSH ONE ×2 (23:06→23:35)
[2021-08-24] MEDS: HYDROmorphone 2 MG/ML SDV IVPUSH ONE (23:08)
[2021-08-24] MEDS: Sodium Chloride 0.9% 1,000 ML IV ONE (23:15)
[2021-08-24] MEDS ORDERED: Glucagon,Human Recombinant 1 MG Vial IM PRN (23:45)
[2021-08-24] MEDS ORDERED: 50% Dextrose in Water 50 ML Syringe IVPUSH PRN (23:45)
[2021-08-24] MEDS: Insulin Regular, Human 100 Units/ML 3 ML Vial IV ONE (23:50)
[2021-08-25] MEDS: Sodium Chloride 0.9% 1,000 ML IV ONE (00:55)
[2021-08-25] MEDS: Lactated Ringers 1,000 ML IV SCH (01:00)
[2021-08-25] MEDS: HYDROmorphone 2 MG/ML SDV IVPUSH ONE (01:10)
[2021-08-25] MEDS: Pantoprazole 40 MG Vial IVPUSH ONE (01:23)
[2021-08-25] MEDS ORDERED: Lactated Ringers 1,000 ML IV SCH (02:43)
[2021-08-25 02:55] VITALS: BP 126/82; PULSE 112
[2021-08-25] MEDS ORDERED: Insulin Regular, Human 100 Units/ML 3 ML Vial ONE (03:44)
== END 2021-08-25 03:13 ==
LOC: LB.ED 22:51
DX: E11.10 Type 2 diabetes mellitus with ketoacidosis without coma (principal); I25.10 Atherosclerotic heart disease of native coronary artery without angina pectoris; E78.00 Pure hypercholesterolemia, unspecified; I25.2 Old myocardial infarction; K21.9 Gastro-esophageal reflux disease without esophagitis; Z79.4 Long term (current) use of insulin; Z20.822 Contact with and (suspected) exposure to COVID-19
CPT/HCPCS: 36415; 36600; 71045; 80048; 80053; 81001; 82803; 82947; 83605; 83735; 84484; 85025; 93005; 93010; 96374; 96375; 96376; 99284; 99285-25; A0425; A0429; A9270-GY; C9113; J1170; J1815-GY; J2405; J7030; J7120; U0002

== ENCOUNTER 2021-08-31 06:38 | Emergency (ER) | payer MEDICARE ==
[2021-08-31 06:47] VITALS: BP 134/86; PULSE 98
[2021-08-31] MEDS ORDERED: Hydrocortisone/Neomycin/Polymyxin B Otic Soln 10 ML Bottle ONE (07:00)
[2021-08-31] MEDS: traMADol 50 MG Tab PO ONE (07:03)
[2021-08-31] MEDS: traMADol 50 MG Tab ONE (07:14)
== END 2021-08-31 07:06 | disposition home or self-care (01) ==
LOC: LB.ED 06:38
DX: H60.501 Unspecified acute noninfective otitis externa, right ear (principal); E11.9 Type 2 diabetes mellitus without complications; I25.2 Old myocardial infarction; I25.10 Atherosclerotic heart disease of native coronary artery without angina pectoris; Z79.4 Long term (current) use of insulin
CPT/HCPCS: 70450; 71250; 74176; 99284-25; A9270-GY

== ENCOUNTER 2021-08-31 18:20 | Emergency (ER) | payer MEDICARE ==
[2021-08-31] MEDS: HYDROmorphone 2 MG/ML SDV IVPUSH ONE (18:57)
[2021-08-31] MEDS: Morphine 4 MG/ML VIAL IVPUSH ONE (19:51)
[2021-08-31] MEDS: Sodium Chloride 0.9% 1,000 ML IV ONE (20:08)
[2021-08-31] MEDS ORDERED: 50% Dextrose in Water 50 ML Syringe IVPUSH PRN (20:24)
[2021-08-31] MEDS ORDERED: Glucagon,Human Recombinant 1 MG Vial IM PRN (20:24)
[2021-08-31] MEDS: Insulin Regular, Human 100 Units/ML 3 ML Vial SUBCUT ONE (20:26)
[2021-08-31] MEDS: Diltiazem 25 MG/5 ML SDV IVPUSH ONE (20:35)
[2021-08-31] MEDS: Ketorolac 30 MG/ML SDV IVPUSH ONE (20:39)
[2021-08-31 21:07] VITALS: BP 150/90; PULSE 86
== END 2021-08-31 21:40 ==
LOC: LB.ED 18:20
DX: R51.9 Headache, unspecified (principal); G98.8 Other disorders of nervous system; I25.10 Atherosclerotic heart disease of native coronary artery without angina pectoris; E78.00 Pure hypercholesterolemia, unspecified; I25.2 Old myocardial infarction; E11.9 Type 2 diabetes mellitus without complications; K21.9 Gastro-esophageal reflux disease without esophagitis; Z79.4 Long term (current) use of insulin; Z20.822 Contact with and (suspected) exposure to COVID-19
CPT/HCPCS: 36415; 70450; 71250; 74176; 80053; 82947; 83605; 84484; 85025; 85379; 85610; 93005; 96374; 96375; 99285; 99285-25; J1170; J1885; J2270; J3490; J7030; U0002

== ENCOUNTER 2023-01-07 23:29 | Emergency (ER) | payer MEDICARE ==
[2023-01-07] MEDS ORDERED: Ondansetron 4 MG/2 ML SDV IVPUSH ONE (23:34)
[2023-01-07] MEDS ORDERED: Sodium Chloride 0.9% 10 ML Syringe FLUSH PRN (23:34)
[2023-01-07 23:40] LABS: HEMATOCRIT 52.4 % (40.0-54.0); MEAN CORPUSCULAR HEMOGLOBIN 32.8 pg (27.0-32.0); MEAN CORPUSCULAR HGB CONC 35.3 g/dL (31.0-35.0); MEAN PLATELET VOLUME 10.3 fL (6.0-10.0); RED BLOOD CELL COUNT 5.64 M/uL (4.50-6.50); RED CELL DISTRIBUTION WIDTH 14.3 % (11.0-16.0); WHITE BLOOD CELL COUNT,WBC 9.3 K/uL (4.0-11.0)
[2023-01-07 23:44] LABS: HEMOGLOBIN 18.5 g/dL (13.0-18.0)
[2023-01-07] MEDS ORDERED: Sodium Chloride 0.9% 1,000 ML IV SCH (23:45)
[2023-01-07] MEDS ORDERED: Ondansetron 4 MG Tab.DIS ONE (23:50)
[2023-01-07 23:55] LABS: A/G RATIO 1.2 (0.8-2.0); ALANINE AMINOTRANSFERASE,ALT 26 U/L (12-78); ALBUMIN 4.4 g/dL (3.4-5.0); ALKALINE PHOSPHATASE 80 U/L (46-116); ANION GAP 17.5 mmol/L (5.0-15.0); ASPARTATE AMNIOTRANSFERASE,AST 17 U/L (15-37); BILIRUBIN TOTAL 0.4 mg/dL (0.0-1.0); BLOOD UREA NITROGEN,BUN 22 mg/dL (8-26); BUN/CREATININE RATIO 12.6 (6-25); CALCIUM 9.4 mg/dL (8.5-10.1); CARBON DIOXIDE,CO2 24.2 mmol/L (21.0-32.0); CHLORIDE,CL 103 mmol/L (98-107); CREATININE 1.75 mg/dL (0.70-1.30); ESTIMATED GFR 43 mL/min (>60); GLUCOSE RANDOM 151 mg/dL (74-100); MAGNESIUM 1.8 mg/dL (1.8-2.4); PHOSPHORUS 3.1 mg/dL (2.5-4.9); POTASSIUM,K 3.7 mmol/L (3.5-5.1); PROTEIN TOTAL,TP 8.1 g/dL (6.4-8.2); SODIUM,NA 141 mmol/L (136-145); TROPONIN I HIGH SENSITIVITY 29.9 pg/ml (<=60.4)
[2023-01-08] MEDS ORDERED: Morphine 4 MG/ML VIAL IVPUSH ONE (00:18)
[2023-01-08] MEDS ORDERED: Ondansetron 4 MG/2 ML SDV IVPUSH PRN (00:34)
[2023-01-08] MEDS ORDERED: Morphine 4 MG/ML VIAL IVPUSH PRN (00:34)
[2023-01-08] MEDS ORDERED: Lactated Ringers 1,000 ML IV SCH (00:45)
[2023-01-08] MEDS ORDERED: Morphine 4 MG/ML VIAL ONE (05:33)
[2023-01-08 08:06] VITALS: BP 108/65; PULSE 107
[2023-01-08 09:13] LABS: BUN/CREATININE RATIO 14.7 (6-25); CALCIUM 8.2 mg/dL (8.5-10.1); CARBON DIOXIDE,CO2 21.6 mmol/L (21.0-32.0); CREATININE 1.5 mg/dL (0.70-1.30); EST CRCL DRUG DOSING (CG) 48.77 mL/min; POTASSIUM,K 4.6 mmol/L (3.5-5.1); TROPONIN I HIGH SENSITIVITY 33.4 pg/ml (<=60.4)
== END 2023-01-08 09:35 | disposition home or self-care (01) ==
LOC: LB.ED 23:29
DX: E86.0 Dehydration (principal); A08.4 Viral intestinal infection, unspecified; I25.10 Atherosclerotic heart disease of native coronary artery without angina pectoris; E78.00 Pure hypercholesterolemia, unspecified; I25.2 Old myocardial infarction; E11.9 Type 2 diabetes mellitus without complications; Z91.038 Other insect allergy status; Z79.4 Long term (current) use of insulin; Z79.899 Other long term (current) drug therapy
CPT/HCPCS: 36415; 71045; 80048; 80053; 83690; 83735; 84100; 84484; 85027; 85379; 93005; 96361; 96374; 96375; 96376; 99285; A0425; A0429; J2270; J2405; J7030; J7120; Q0162

== ENCOUNTER 2023-08-02 04:00 | Emergency (ER) | payer MEDICARE ==
[2023-08-02] MEDS ORDERED: Naloxone 2 MG/2 ML Syringe IVPUSH PRN (04:24)
[2023-08-02] MEDS: HYDROmorphone 2 MG/ML Syringe IVPUSH ONE ×2 (04:50→06:05)
[2023-08-02 04:58] LABS: BASOPHILS ABSOLUTE AUTO 0.05 K/uL (0.02-0.10); BASOPHILS PERCENT AUTO 0.6 % (0.0-0.5); EOSINOPHILS ABSOLUTE AUTO 0.52 K/uL (0.04-0.40); EOSINOPHILS PERCENT AUTO 6.4 % (1.0-5.0); HEMATOCRIT 45.5 % (40.0-54.0); HEMOGLOBIN 16.3 g/dL (13.0-18.0); LYMPHOCYTES ABSOLUTE AUTO 3.86 K/uL (1.50-4.00); LYMPHOCYTES PERCENT AUTO 47.5 % (20.0-40.0); MEAN CORPUSCULAR HEMOGLOBIN 32.7 pg (27.0-32.0); MEAN CORPUSCULAR HGB CONC 35.8 g/dL (31.0-35.0); MEAN CORPUSCULAR VOLUME 91 fL (76-96); MEAN PLATELET VOLUME 10.5 fL (6.0-10.0); MONOCYTES ABSOLUTE AUTO 0.71 K/uL (0.20-0.80); MONOCYTES PERCENT AUTO 8.7 % (3.0-10.0); NEUTROPHILS ABSOLUTE AUTO 2.98 K/uL (2.00-7.50); NEUTROPHILS PERCENT AUTO 36.8 % (45.0-70.0); PLATELET COUNT,PLT 176 K/uL (150-400); RED BLOOD CELL COUNT 4.98 M/uL (4.50-6.50); RED CELL DISTRIBUTION WIDTH 13.5 % (11.0-16.0); WHITE BLOOD CELL COUNT,WBC 8.1 K/uL (4.0-11.0)
[2023-08-02] MEDS ORDERED: Sodium Chloride 0.9% 10 ML Syringe FLUSH PRN (05:19)
[2023-08-02 05:28] LABS: A/G RATIO 1.2 (0.8-2.0); ALBUMIN 3.6 g/dL (3.4-5.0); ANION GAP 14.9 mmol/L (5.0-15.0); BILIRUBIN TOTAL 0.5 mg/dL (0.0-1.0); BUN/CREATININE RATIO 13.6 (6-25); CALCIUM 8.4 mg/dL (8.5-10.1); CARBON DIOXIDE,CO2 26.4 mmol/L (21.0-32.0); CREATININE 0.88 mg/dL (0.70-1.30); EST CRCL DRUG DOSING (CG) 82.05 mL/min; POTASSIUM,K 4.3 mmol/L (3.5-5.1); PROTEIN TOTAL,TP 6.5 g/dL (6.4-8.2)
[2023-08-02] MEDS: Ketorolac 30 MG/ML SDV IM ONE (07:53)
[2023-08-02] MEDS: Ketorolac 30 MG/ML SDV IVPUSH ONE (07:55)
[2023-08-02] MEDS: Ketorolac 30 MG/ML SDV ONE (07:56)
[2023-08-02] MEDS ORDERED: Acetaminophen/oxyCODONE 325-5 MG Tab ONE (08:00)
[2023-08-02 09:49] VITALS: BP 154/91; PULSE 95
== END 2023-08-02 08:05 | disposition home or self-care (01) ==
LOC: LB.ED 04:00
DX: R29.90 Unspecified symptoms and signs involving the nervous system (principal); R51.9 Headache, unspecified; I25.2 Old myocardial infarction; E11.9 Type 2 diabetes mellitus without complications; F17.210 Nicotine dependence, cigarettes, uncomplicated; Z91.038 Other insect allergy status; Z79.4 Long term (current) use of insulin; Z86.19 Personal history of other infectious and parasitic diseases
CPT/HCPCS: 36415; 70450; 80053; 85025; 85379; 85651; 96374; 96375; 96376; 99284; 99284-25; A9270-GY; J1170; J1885